=== PATIENT | female | born 1980 | race Caucasian/White ===

== ENCOUNTER 2024-07-10 08:50 | Emergency (ER) | payer SELFPAY ==
[2024-07-10] VITALS (9 sets, daily range): BP systolic 131–167; BP diastolic 95–105; BMI 31.8
[2024-07-10] MEDS: NSS 1000 IV (09:56)
[2024-07-10] MEDS: DECADRON 10 MG IV (09:57)
[2024-07-10] MEDS: TYLENOL 1000 MG PO (09:58)
[2024-07-10 10:08] LABS: % Basophils 0.5 % (0-2); % Eosinophils 0.4 % (0-6); % Immature Granulocytes 0.2 % (0-0.5); % Lymphocytes 13.5 % (20.5-51.1); % Monocytes 10.6 % (1.7-9.3); % Neutrophils 74.8 % (42.2-75.2); Absolute Basophils 0.1 10^3/uL (0-0.2); Absolute Lymphocytes 1.5 10^3/uL (1.2-3.4); Absolute Monocytes 1.2 10^3/uL (0.1-0.6); Absolute Neutrophils 8.2 10^3/uL (1.4-6.5); Hemoglobin 15.5 g/dL (12.0-16.0); Mean Corp Hgb Conc. 34.4 g/dL (33.0-37.0); Mean Corpuscular Hgb 30.7 pg (27.0-31.0); Mean Corpuscular Volume 89.1 fL (81.0-99.0); Mean Platelet Volume 9.8 fL (7.4-10.4); Nucleated Red Blood Cells % 0 %; Platelet Count 226 10^3/uL (130-400); Red Blood Cell Count 5.05 10^6/uL (4.20-5.40); Red Cell Dist. Width 12.7 % (11.5-14.5)
[2024-07-10 10:18] LABS: ALT (SGPT) 13 U/L (0-35); AST (SGOT) 19 U/L (14-36); Albumin 4.7 g/dl (3.5-5.0); Alkaline Phosphatase 87 U/L (38-126); Blood Urea Nitrogen 8 mg/dl (7-17); Calcium 9.2 mg/dl (8.4-10.2); Carbon Dioxide 23 mmol/L (22-30); Chloride 104 mmol/L (98-107); Estimated Creatinine Clearance 108 ml/min; Glucose 110 mg/dl (70-99); Sodium 135 mmol/L (135-145); Total Bilirubin 0.5 mg/dl (0.2-1.3); Total Protein 7.3 g/dl (6.3-8.2); eGFR > 60.00
[2024-07-10 10:51] LABS: TSH 2.43 uIU/ml (0.47-4.68)
--- NOTE | 2024-07-10 12:25 | ED.GENMED ---
History of Present Illness
General
Chief Complaint: Head Injury
Source: patient
Exam Limitations: none
Time Seen by Provider: 07/10/24 09:22
History of Present Illness
History of Present Illness:
44-year-old female who presents for evaluation after she had passed out last night. Patient states she woke up hot and sweaty and loss of fell mother heard her hit the ground. She must of hit her head as she has bruising around her right eye she
states. Mom states that she did seem very hot felt like she had a fever. Patient states that she feels better now but has been coughing. She is a smoker.
Past History
Past History
ED Past Medical History: None
Social History
Tobacco: Smoker
Phy Exam
Physical Exam
Physical Exam:
CONSTITUTIONAL Patient alert and oriented to person, place and time. Well-appearing. Vital signs reviewed.
HEAD atraumatic, normocephalic.
EYES eyelids normal to inspection, Extraocular muscles intact, Conjunctiva normal, Sclera normal.
NECK normal range of motion, Trachea midline, no jugular venous distention.
RESPIRATORY CHEST No respiratory distress noted, Chest expansion equal, wheezing noted bilaterally
CARDIOVASCULAR irregularly irregular and tachycardic, Heart sounds normal.
ABDOMEN abdomen nontender, Bowel sounds normal. No distention.
BACK normal inspection, no obvious deformities
UPPER EXTREMITY range of motion normal, Motor strength normal, no cyanosis, no edema.
LOWER EXTREMITY range of motion normal, Motor strength normal, no cyanosis, no edema.
NEURO Speech normal, No focal motor deficits, Barb coma scale 15, Memory normal, Cranial Nerves intact to screening exam.
SKIN skin warm, dry, and normal in color.
Scores
[id number] Score for Afib Stroke Risk
Age in Years (65=0, 65-74=1, >/=75=2): <65
Sex (Female=+1): Female
Congestive Heart Failure History (Yes=+1): No
Hypertension History (Yes=+1): No
Stroke/TIA/Thromboembolism History (Yes=+2): No
Vascular Disease History (Yes=+1): No
Diabetes Mellitus (Yes=+1): No
Score: 1
Anticoagulation Recommendations: Consider anticoagulation (as validated in nonvalvular fib)
Course
Orders/Labs/Results
Orders:
Orders
07/10/24
Electrocardiogram (*1) Stat
Comment: DONE EMR
Electrocardiogram (*1) Stat
Comment: DONE EMR
07/10/24 09:11
Electrocardiogram (*1) Urgent
Reason for Study: Chest Pain
EKG- Treatment ONCE
07/10/24 09:49
0.9% Sodium Chloride 1000 ml [Nss] 1,000 ml IV BOLUS
Acetaminophen [Tylenol] 1,000 mg PO NOW STA
Dexamethasone Sod Phosphate [Decadron] 10 mg IV NOW STA
07/10/24 09:50
CT Head W/o Iv Contrast Urgent
Comment:
Reason For Exam: fall, syncope
Complete Blood Count/With Diff Urgent
Comprehensive Metabolic Panel Urgent
Magnesium Urgent
TSH Urgent
CR Chest - 2 Views Urgent
Comment:
Reason For Exam: cough, sob
07/10/24 10:54
Electrocardiogram (*1) Urgent
Reason for Study: Shortness of Breath
Electrocardiogram (*1) Urgent
EKG- Treatment ONCE
EKG- Treatment ONCE
07/10/24 11:22
Diltiazem 125 mg/125 ml Nss [Cardizem] 125 mg in 125 ml IV NOW
Initial dose in mg/hr, then titrate:: 10
Titrate to keep:: Heart rate 80-100 bpm
Titrate by mg/hr:: 5 mg/hr
Frequency of titrations (minutes):: 15
Maximum dose in mg/hr:: 15
Diltiazem HCl [Cardizem] 10 mg IV NOW STA
07/10/24 11:23
Ipratropium/Albuterol Sulfate [Duoneb] 3 ml INH R NOW STA
Abnormal Lab Results
07/10/24
09:50
WBC 11.0 H 10^3/uL
(4.8-10.8)
Absolute Neuts (auto) 8.2 H 10^3/uL
(1.4-6.5)
Absolute Monos (auto) 1.2 H 10^3/uL
(0.1-0.6)
Lymphocytes % 13.5 L %
(20.5-51.1)
Monocytes % 10.6 H %
(1.7-9.3)
Glucose 110 H mg/dl
(70-99)
07/10/24 09:50
07/10/24 09:50
Vital Signs
Initial and Last Documented VS:
Initial Vital Signs
Temp Pulse Resp BP Pulse Ox
98.4 F 54 16 167/96 97
07/10/24 09:02 07/10/24 09:02 07/10/24 09:02 07/10/24 09:02 07/10/24 09:02
Last Documented Vital Signs
Temp Pulse Resp BP Pulse Ox
99.9 F 123 26 133/95 97
07/10/24 09:45 07/10/24 12:30 07/10/24 12:30 07/10/24 12:00 07/10/24 12:30
MDM/Problems Addressed
Differential Diagnosis Includes:
Electrolyte imbalance, pulm hypertension, COPD, asthma, congestive heart failure, pulmonary embolism
MDM/Problems Addressed:
Acute atrial flutter, acute reactive airway disease, bronchitis, upper respiratory infection
*Radiology
Radiology exam reviewed: radiology read reviewed
*Pulse Oximetry
Patient hypoxic: no
*EKG
Interpreted by ED Provider?: Yes
Interpretation: abnormal
Rate: tachycardiac
Rhythm: atrial flutter
Ruston: normal axis
Ischemia: non-specific ST changes
*Credit Historian Interpretation
Rate: tachycardiac
Interpretation: abnormal
Rhythm: atrial flutter
*Critical Care Note
Total Time (30-74mins, 75-104mins- exclusive of procedures): 30 minutes
Data Reviewed
Source: patient and family
Prescriptions/Medications Considered But Not Given:
Considered antibiotics but no focal infiltrates.
Patient Management
Discussion with other providers: Senior Ssis Developer (Case discussed with Dr. Greenfield)
Escalation/DeEscalation of care consider admission/obs:
Case discussed with cardiology. Arrives in a flutter. Now after treatment is back in normal sinus rhythm. Case discussed cardiology since she is only a [id number] 1 due to being female. Advises diltiazem. An outpatient follow-up will cover
with steroids and bronchodilators. In addition spent 20 to 25 minutes discussing importance of smoking cessation. Patient does agree
ED Attending Note
-
Portions of this chart may have been created with voice recognition software.� Occasional wrong word or��sound alike� substitutions may have occurred due to the inherent limitations of voice recognition software.
Discharge Plan
Departure
Patient Disposition: Home (Routine Discharge)
Date of Disposition: 07/10/24
Time of Disposition: 13:36
Patient with high blood pressure during this ER visit?: Yes
Discharge Problem:
RAD (reactive airway disease), Atrial flutter, Acute bronchitis
Instructions: Atrial flutter, Acute Bronchitis, Adult (DC), Quitting smoking for adults, Wheezing in adults
Prescriptions:
New
albuterol sulfate 90 mcg/actuation HFA aerosol inhaler
2 puff inhalation Q4H Qty: 8.5 0RF
prednisone 10 mg Tablet
See Rx Instructions .ROUTE .COMPLEX Qty: 30 0RF
Rx Instructions:
Take By Mouth:
40 mg daily x3 days, 30 mg daily x3 days,
20 mg daily x3 days, 10 mg daily x3 days.
Referrals:
NONE,* [Family Provider] -
Activity Restrictions/Additional Instructions:
Please stop smoking.
Please see cardiology in the next 3 to 5 days for follow-up and reevaluation.
Return immediately for difficulty breathing, chest pain, shortness of breath, worsening symptoms or any other concerns.
Interventions
Interventions:
*General Assessment Last Done: 07/10/24 09:32
*ED- Fall Risk Assessment Last Done: 07/10/24 09:32
*ED COVID-19 Vaccine History Last Done: 07/10/24 09:32
ED- Cardiac Assessment Last Done: 07/10/24 09:32
ED- Neurological Assessment Last Done: 07/10/24 09:32
ED- Pulmonary Assessment Last Done: 07/10/24 09:32
ED-Skin Assessment Last Done: 07/10/24 09:32
Discharge Date and Time
Print Language: TAMAZIGHT
== END 2024-07-10 14:06 | disposition home or self-care (01) ==
LOC: EMR 08:50
PROVIDERS: EMERGENCY PHYSICIAN Emergency Medicine
DX: I48.92 Unspecified atrial flutter (principal); J45.909 Unspecified asthma, uncomplicated; J20.9 Acute bronchitis, unspecified; R55 Syncope and collapse; F17.200 Nicotine dependence, unspecified, uncomplicated
CPT/HCPCS: 96374; 96361; 99291; 70450; 71046; 80053; 83735; 84443; 85025; 93005

== ENCOUNTER 2024-08-02 07:33 | Day surgery (SDC) | payer OTHER, SELFPAY | END 2024-08-02 11:45 | disposition home or self-care (01) | LOC: CATH 07:33 | PROVIDERS: ATTENDING PHYSICIAN Internal Medicine | DX: I48.3 Typical atrial flutter (principal); I08.1 Rheumatic disorders of both mitral and tricuspid valves; I08.8 Other rheumatic multiple valve diseases; I51.3 Intracardiac thrombosis, not elsewhere classified; F17.210 Nicotine dependence, cigarettes, uncomplicated; Z79.01 Long term (current) use of anticoagulants; Q21.10 Atrial septal defect, unspecified; I48.91 Unspecified atrial fibrillation | CPT/HCPCS: 93312; 93320; 93325 ==

== ENCOUNTER 2024-08-09 06:28 | Day surgery (SDC) | payer OTHER, SELFPAY ==
[2024-08-09] VITALS (8 sets, daily range): BP systolic 114–132; BP diastolic 87–94; BMI 29.0
[2024-08-09] MEDS: NSS 237 ML IV (07:13)
--- NOTE | 2024-08-09 08:32 | ITS.CL.CATH ---
User Support Specialist - Catheterization
Cardiac Catheterization
Procedure Report:
CARDIAC CATHETERIZATION REPORT
Date of Procedure: 08/09/2024
Referring: Tom Greenfield M.D., Ph.D.
Indication: Large ASD with right sided chamber dilation, evaluation prior to ASD repair.
PROCEDURE:
1. Congenital right heart catheterization.
2. Coronary angiography.
3. Left heart catheterization.
A total of 10 minutes of procedural/moderate sedation was utilized. An independent medical secretary was present to assist with and help manage the patient's level of consciousness and physiologic status.
ACCESS:
1. 6 Micronesian right radial artery using a modified Seldinger technique under ultrasound guidance.
2. 5 Micronesian right antecubital vein using a previously placed IV.
CATHETERS:
1. 5 Micronesian balloon wedge.
2. 5 Micronesian JL 3.5.
3. 5 Micronesian JR4.
4. 5 Micronesian AR mod.
HEMODYNAMIC DATA
Weight (kg): 79.1
AO (s/d/x, mmHg): 127/85/103
LV (s/x, mmHg): 127/15
PCWP (a/v/x, mmHg): 18/19/15
PA (s/d/x, mmHg): 39/16/24
RV (s/x, mmHg): 39/10
RA (a/v/x, mmHg): 15//10
SVC SvO2 (%): 74.6
IVC SvO2 (%): 82.1
RA SvO2 (%): 89.9
RV SvO2 (%): 91.9
PA SvO2 (%): 89.0
MV SvO2 (%): 76.5
SaO2 (%): 98.7
Hbg (g/dL): 14.3
RUCHI
CO (L/min): 5.6
CI (L/min/m2): 2.9
Thermodilution
CO (L/min): Not performed.
CI (L/min/m2): Not performed.
Qp:Qs: 2.29
TPG (mmHg): 9
PVR (Castaneda Units): 1.61
SVR (dynes*seconds*cm^-5): 1329
AVO2 Diff (Volume %): 4.31
AV gradient (x, mmHg): None.
AV area (cm2): Normal.
MV gradient (x, mmHg): Not obtained.
MV area (cm2): Not obtained.
LEFT VENTRICULOGRAPHY: Not performed.
AORTOGRAPHY: Not performed.
CORONARY ANGIOGRAPHY
Dominance: Left.
Left Main: Extremely short, essentially cloacal, bifurcating vessel with no coronary artery disease.
LAD: Normal size vessel giving rise to 1 notable diagonal. There is no coronary artery disease. 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
Ramus: Congenitally absent.
Circumflex: Large size, dominant vessel giving rise to 2 obtuse marginals before terminating as a left posterior descending artery. There is no coronary artery disease.
RCA: Small size, nondominant vessel with a large right ventricular branch. There is no coronary artery disease.
INTERVENTIONS
None.
Closure Device: Vascular band for the right radial artery, manual pressure for the right antecubital vein.
Radiation dose (mGy): 273.41
DAP (cm2.Gy): 23.2537
Fluoroscopy time (minutes): 4.6
CONCLUSIONS:
1. Left dominant circulation with no coronary artery disease. 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
2. Mildly elevated filling pressures (LVEDP = 15 mmHg, PCWP = 15 mmHg at 79.1 kg).
3. Large fluk-hc-nqhtf shunt at the atrial level, consistent with previously diagnosed atrial septal defect. QP: QS = 2.29.
RECOMMENDATIONS:
1. Expectant management after cardiac catheterization via right radial/antecubital approach.
2. Limited weight bearing on the right wrist for one week.
3. Consultation with CT surgery regarding optimal strategy for ASD closure, surgical versus percutaneous. Prior ANTHONY raises concerns about the amount of rim available for percutaneous closure.
4. Resume anticoagulation for previously diagnosed left atrial appendage thrombus.
Copy to: Tom Greenfield M.D., Ph.D.
Severo Manzo DO, FACC, FACP
[2024-08-09] MEDS: NSS 1000 IV (09:42)
== END 2024-08-09 11:15 | disposition home or self-care (01) ==
LOC: CATH 06:28
PROVIDERS: ATTENDING PHYSICIAN Internal Medicine Cardiovascular Disease; OTHER PHYSICIAN Internal Medicine
DX: Q21.10 Atrial septal defect, unspecified (principal); Q24.5 Malformation of coronary vessels; I48.3 Typical atrial flutter; I10 Essential (primary) hypertension; Z79.01 Long term (current) use of anticoagulants; F17.210 Nicotine dependence, cigarettes, uncomplicated
CPT/HCPCS: 93460; 93563; 93597; C1894; Q9967

== ENCOUNTER 2024-09-18 06:38 | Day surgery (SDC) | payer OTHER, SELFPAY | END 2024-09-18 08:05 | disposition home or self-care (01) | LOC: CATH 06:38 | PROVIDERS: ATTENDING PHYSICIAN Internal Medicine | DX: I48.3 Typical atrial flutter (principal); Q21.11 Secundum atrial septal defect; I51.3 Intracardiac thrombosis, not elsewhere classified; I08.1 Rheumatic disorders of both mitral and tricuspid valves; I08.8 Other rheumatic multiple valve diseases; I10 Essential (primary) hypertension; Z79.01 Long term (current) use of anticoagulants | CPT/HCPCS: 93312; 93320; 93325 ==

== ENCOUNTER 2024-10-30 06:38 | Day surgery (SDC) | payer OTHER, SELFPAY ==
[2024-10-30 07:38] VITALS: BMI 30.2
== END 2024-10-30 09:15 | disposition home or self-care (01) ==
LOC: CATH 06:38
PROVIDERS: ATTENDING PHYSICIAN Internal Medicine Cardiovascular Disease; OTHER PHYSICIAN Internal Medicine
DX: I08.1 Rheumatic disorders of both mitral and tricuspid valves (principal); Q21.11 Secundum atrial septal defect; I51.3 Intracardiac thrombosis, not elsewhere classified; I48.0 Paroxysmal atrial fibrillation; I48.3 Typical atrial flutter; I10 Essential (primary) hypertension; F17.200 Nicotine dependence, unspecified, uncomplicated
CPT/HCPCS: 93312; 93320; 93325

== ENCOUNTER 2024-11-21 12:06 | Inpatient (IN) | payer OTHER, SELFPAY ==
[2024-11-21 12:25] VITALS: BP 143/96
[2024-11-21 12:27] VITALS: BP 134/94
[2024-11-21 12:47] VITALS: BMI 30.3
--- NOTE | 2024-11-21 12:50 | HPS.HSE ---
Family Physician
-
Family Physician: NOT KNOW UNKNOWN - PT DOES
Chief Complaint
-
Early admission for IV heparin conversion due to left atrial appendage thrombus
History of Present Illness
44-year-old female recently evaluated by Dr. Cohn in the CT office on 11/06/2024. She was diagnosed with atrial flutter in July and started on Dabigatran. Patient underwent attempted ATNHONY guided cardioversion on 09/18/24 and was found to have a large
secundum ASD with significant shunt and also thrombus in the left atrial appendage. Patient has been anticoagulated and repeat echocardiogram on 10/30/2024 reported preserved EF at 55% with no regional wall motion abnormality. Left atrial appendage
thrombus was still present but smaller. Therefore patient is admitted for Pradaxa to IV heparin conversion in preparation for left atrial appendage thrombectomy, secundum ASD closure, maze, and left atrial appendage clip on 11/24/2024 with
Jonny Cohn. Last dose of dabigatran was today (11/21/2024). Admission ECG with atrial flutter at 72 bpm and electronically interpreted as acute STEMI. ECG reviewed with cardiology and found to be low incidence as patient had normal coronaries on
cath (08/09/2024) and states she typically experiences mild chest discomfort when in a flutter. Troponin added to admission labs.
Medical History
Past Medical History
Past Medical History: Reports Arrhythmia (Atrial fibrillation), HTN and Other (scoliosis)
Past Surgical History: Reports None
Social History
Tobacco: Former Smoker (quit 1 month ago)
Alcohol: Occasional
Drug: None
Personal: Single
Living: With Family
Employment: Employed
Family History
Family History: Not pertinent
Allergies / Home Medications
Allergies reflects when Allergies were last updated in [facility].
Home Medications with original date entered in [facility]
Allergy/Medication List:
Allergies
Allergy/AdvReac Type Severity Reaction Status Date / Time
pollen extracts Allergy Unknown Verified 07/10/24 09:07
Home Medications
�Medication �Instructions �Recorded
acetaminophen 500 mg tablet 500 mg PO QID PRN pain 08/02/24
diltiazem HCl 360 mg 360 mg PO DAILY 08/02/24
tablet,extended release 24 hr
(Matzim [place])
dabigatran etexilate 150 mg capsule 150 mg PO BID 10/30/24
Review of Systems
-
History Source: Patient
A 12 point ROS was completed and negative except as noted: Yes
Physical Exam
Vital Signs
Vital Signs
Temp Pulse Resp BP Pulse Ox
98.3 F 69 18 134/94 98
11/21/24 12:48 11/21/24 12:45 11/21/24 12:48 11/21/24 12:27 11/21/24 12:48
Physical Exam
General: Well Developed, Well Nourished and No Apparent Distress
HEENT: NormoCephalic, Anicteric, Moist mucous membranes and PERRLA
Respiratory: Clear
Cardiac: Irregular Rhythm
Breast: Deferred by me
GI: Soft, Non Tender, Non Distended and Normal Bowel Sounds
Rectal: Deferred by Provider
Genito-urinary: Deferred by me
Musculoskeletal: No Clubbing, No Cyanosis, No Edema and Normal Gait & Station
Skin: Warm and Dry
Neuro: AO x 3, No Motor Deficits and Nonfocal/grossly intact
Hematologic/Lymphatic: No Lymphadenopathy
Psych: Calm
Data Reviewed
-
Diagnostic Radiology: Report Reviewed by me and Discussed with Physician
Medical Tests (Nuc Med, Echo, EKG etc): Report Reviewed by me and Discussed with Physician
Lab Data: Labs Reviewed by me and Discussed with Physician
Impression/Plan
-
IMPRESSION: 44-year-old female with secundum ASD, left atrial appendage thrombus, and atrial flutter is admitted for Pradaxa to IV heparin conversion and preparation for left atrial appendage thrombectomy, maze, ASD closure, and left atrial
appendage clip on 11/24. ECG identifiably atrial flutter with controlled ventricular response.
PLAN:
- pre-op diagnostics ordered
- begin IV Heparin (last Pradaxa o 11/21/24)
- Admission ECG reviewed with cardiology>low likelihood of STEMI (clean cors on cath in July)>troponin sent
- 2PRBC, 2 plts on hold for OR
- preop UA-HCG, T&S ordered
- will need anesthesia pre-op evaluation
- OR consent scanned in chart
- had recent dental visit
[2024-11-21 13:04] LABS: Hematocrit 40.0 % (37.0-47.0); Hemoglobin 13.5 g/dL (12.0-16.0); Mean Corp Hgb Conc. 33.8 g/dL (33.0-37.0); Mean Corpuscular Volume 87.1 fL (81.0-99.0); Nucleated Red Blood Cells % 0 %; Platelet Count 235 10^3/uL (130-400); Red Cell Dist. Width 12.5 % (11.5-14.5)
[2024-11-21 13:14] LABS: INR 1.21; PT 15.6 Sec (11.4-14.6)
[2024-11-21 13:15] LABS: APTT 35.1 Sec (23.4-35.0)
--- NOTE | 2024-11-21 13:26 | ECGCV ---
<Manasa Leiva NP> notified of ECG critical value identified by electronic interpretation on ECG completed on <>, at <1235>.
--- NOTE | 2024-11-21 13:30 | PTCARENOTE ---
pt admitted to CVICU, VS completed, weighed. admission interview completed, home meds reviewed. PIV placed, labs drawn. EKG completed, TEAR DOWN MATCHER aware of result. pt oriented, no c/o CP. aflutter on the monitor, HR 60-90s. SBP 130-140s, TEAR DOWN MATCHER aware of
difference in b/l arm diastolics. pt on RA, 97% POX. lungs clear. pt abdomen s/n, denies n/v. +BS. voids. ambulates independently. patterson angiomas on chest and b/l arms, pt states is her baseline. pt sent to CT scan and Vasc US. family updated.
[2024-11-21 13:45] LABS: ALT (SGPT) 17 U/L (0-35); AST (SGOT) 20 U/L (14-36); Albumin 4.8 g/dl (3.5-5.0); Alkaline Phosphatase 81 U/L (38-126); Blood Urea Nitrogen 8 mg/dl (7-17); Calcium 9.0 mg/dl (8.4-10.2); Carbon Dioxide 20 mmol/L (22-30); Chloride 106 mmol/L (98-107); Estimated Creatinine Clearance 123 ml/min; Glucose 98 mg/dl (70-99); Magnesium 1.7 mg/dl (1.6-2.3); Potassium 3.8 mmol/L (3.5-5.1); Sodium 135 mmol/L (135-145); Total Protein 7.1 g/dl (6.3-8.2); eGFR > 60.00
[2024-11-21] MEDS: HEPARIN 25000 UNITS/250 ML IV (14:49)
[2024-11-21 14:53] VITALS: BMI 30.3
--- NOTE | 2024-11-21 15:14 | CM ---
Reviewed chart. Met with Miss Ramsey to review discharge plans. She states prior to admission she resides with her mother in a one story with two steps to enter. She states prior to admission she was independent with ambulation and adls. She
states she does not have any DME in the home. She states she has a prescription plan and uses [facility].She states her mother will be home to assist in her care if needed. She states she is scheduled for surgery on Wednesday11/24/24. Medical
work-up in progress. The discharge plan is to return home with her mother and a home visit by the Transitional Care Nurse when medically stable.
[2024-11-21 15:39] VITALS: BP 138/93
[2024-11-21 15:47] LABS: Troponin I < 0.012 ng/ml
--- NOTE | 2024-11-21 16:00 | PTCARENOTE ---
pt VSS, no changes in assessment. heparin gtt running as ordered.
[2024-11-21 16:21] LABS: Urine Character Clear (Clear)
[2024-11-21 16:30] LABS: Urine Red Blood Cell 0-2 /HPF (0-2); Urine White Cell 0-2 /HPF (0-5)
[2024-11-21] MEDS: CARDIZEM CD 360 MG PO (17:15)
[2024-11-21 20:02] VITALS: BP 139/93
--- NOTE | 2024-11-21 20:10 | PTCARENOTE ---
Assumed care of pt from dayshift RN. Walking rounds completed. Pt AAOx3. A-flutter on the tele monitor. HR 70-80s. BP stable. Palpable pulses throughout. No edema. Pt is 97% on RA. B/L breath sound present and equal. Abdomen soft/nontender. +BSx4.
Voiding w/o issue. Juarez angiomas on chest and b/l arms, pt states is her baseline. PIV x1 intact. Independent in room. Heparin infusing as ordered. Denies pain at this time. See worklist for full nursing assessment and interventions. Call [facility]
within reach.
[2024-11-21 21:37] LABS: APTT 53.6 Sec (23.4-35.0)
[2024-11-21 23:03] VITALS: BP 119/91
--- NOTE | 2024-11-21 23:30 | PTCARENOTE ---
No change in assessment. A-flutter on the tele monitor. HR 60-80s. BP stable. Voiding as needed. Heparin infusing. Repositioned in bed for comfort. Call [facility] within reach.
[2024-11-22] VITALS (8 sets, daily range): BP systolic 123–135; BP diastolic 80–101; BMI 29.5
--- NOTE | 2024-11-22 04:14 | W.PN.CT ---
Today's Communication / Plan
-
Plan:
-Transitioning off Dabigatran to heparin gtt
-Monitor PTT
-Dabigatran washout, last dose 11/21/24
-Ongoing preop workup/optimization
-Will replete Mg++ and K+
-For ASD closure, MAZE, WINSOME clip via Sternotomy on 11/24/24, by Dr. Cohn
Assessment / Plan
-
Assessment:
-Atrial flutter
-Large secundum ASD with L -> R shunt
-Mild MR
-Mild-moderate TR
-LVEF 55-60%
-HTN
-Class 1 obesity (BMI 30.3)
-Scoliosis
-Former tobacco use
-S/P L heart Cath, no CAD, 08/09/24
Discussed patient care with: Nursing, Pharmacy and Care Team
Subjective
-
Date of Service: November 22, 2024
Pt offers no complaints, 'just a bit anxious'
Objective Data
-
Lab Results
11/21/24 12:55
11/21/24 12:55
PT 15.6 Sec (11.4-14.6) H 11/21/24 12:55
INR 1.21 11/21/24 12:55
APTT 53.6 Sec (23.4-35.0) H 11/21/24 21:18
Vital Signs
Vital Signs
Temp Pulse Resp BP Pulse Ox
98.2 F 73 18 127/92 96
11/22/24 03:53 11/22/24 04:00 11/22/24 03:53 11/22/24 03:53 11/22/24 03:53
CT Intake/Output/Weight
11/21/24 11/21/24 11/22/24
06:59 18:59 06:59
Intake Total 28.5 / 38.0 9.5 / 38.0
Output Total 1100 / 1100
Balance -1071.5 / -1062.0 9.5 / -1062.0
SaO2: 96 (RA)
Physical Exam
-
General: Awake, Oriented and AOx3
Cardiovascular: Irregular rate & rhythm and No Murmurs
Respiratory: Clear
Extremities: No Edema
Data Reviewed
-
Lab Results: Results Reviewed
Medications: Active Meds Reviewed
Chest X-Ray: Report Reviewed and Image Reviewed
ECG: Report Reviewed and Image Reviewed
[2024-11-22] MEDS: KCL 20 MEQ PO (04:25)
[2024-11-22] MEDS: MAGNESIUM SULFATE 50 IV (04:25)
[2024-11-22 04:36] LABS: APTT 64.7 Sec (23.4-35.0)
--- NOTE | 2024-11-22 04:49 | PTCARENOTE ---
No change in assessment. Pt is a-flutter w/ occasional PVCs on the tele monitor. HR 70s. BP stable. 96% on RA. Labs drawn and sent. EKG obtained. Voiding w/o issue. Potassium and mag administered - see MAR. Heparin infusing as ordered. Call [facility]
within reach.
--- NOTE | 2024-11-22 08:00 | PTCARENOTE ---
pt received from previous RN, oriented, OOB in chair. Aflutter on the monitor, HR 70s. SBP 130s, OUTDOOR GUIDE aware of diastolic pressures. palpable pulses, no edema. pt on RA, 98% POX. lungs clear. pt abdomen s/n, denies n/v. diet tolerated well. voids.
ambulates independently. PIV. heparin gtt running as ordered. see worklist for VS, I&O, and assessment.
[2024-11-22 08:40] LABS: Glycohemoglobin (HgbA1c) 5.3 % (4.0-5.6)
--- NOTE | 2024-11-22 09:36 | CON.CAR ---
Addendum entered and electronically signed by Harshad Garcia MD 11/22/24 18:37:
Patient seen and examined in collaboration with ANSWERING SERVICE AGENT; agree with below.
- 44-year-old female with typical atrial flutter (on Pradaxa) being electively admitted to undergo elective WINSOME thrombectomy, secundum ASD closure, maze, and WINSOME clip on 11/24/2024.
- Feels well from a cardiac standpoint currently; no complaints.
- Continue heparin drip.
- Continue gambling monitor; will follow.
Original Note:
Consultation
Consultation Request
Date/Time Consultation Requested: 11/22/24830
Date/Time Consultation Performed: 11/22/24934
Requesting Provider: Manasa Leiva
Performing Provider: Ana M MCWILLIAMS for Dr. Garcia
Reason for Consultation: Atrial flutter, ASD, WINSOME thrombus
Medical History
-
Chief Complaint: Atrial flutter, ASD, WINSOME thrombus
History of Present Illness:
44 y/o female (patient of Dr. Greenfield) with typical atrial flutter on dabigatran (and PAF per OP chart- Dr. Calderon consult), hypertension, hx tobacco use, ASD, and WINSOME thrombus. Last dose dabigatran 11/21/24 and she is here for heparin bridging with
plan for left atrial appendage thrombectomy, secundum ASD closure, maze, and left atrial appendage clip on 11/24/[address] Jonny Cohn. She is in no distress at the time of my assessment.
Past Medical History
Past Medical History: Arrhythmias, HTN and Other (as above)
Social History
Tobacco: Former Smoker
Family History
Family History: Reviewed & Not Pertinent
Allergies / Home Medications
Allergy/AdvReac Type Severity Reaction Status Date / Time
pollen extracts Allergy Unknown Verified 07/10/24 09:07
�Medication �Instructions �Recorded �Confirmed �Type
acetaminophen 500 mg tablet 500 mg PO QID PRN pain 08/02/24 11/21/24 History
diltiazem HCl 360 mg 360 mg PO DAILY Blood Pressure 08/02/24 11/21/24 History
tablet,extended release 24 hr
(Matziashlee [place])
dabigatran etexilate 150 mg capsule 150 mg PO BID Diabetes 10/30/24 11/21/24 History
Review of Systems
-
History Source: Patient
All other systems: Negative unless noted
Cardiac: Chest Pain (gets chest discomfort/congestion feeling when HR fast)
Physical Exam
Vital Signs
Temp Pulse Resp BP Pulse Ox
97.8 F 75 18 132/98 98
11/22/24 08:00 11/22/24 09:15 11/22/24 08:00 11/22/24 08:12 11/22/24 08:00
Lab Results
11/21/24 12:55
11/21/24 12:55
Troponin I < 0.012 ng/ml 11/21/24 15:03
Physical Exam
General: Well Developed, Well Nourished and No Apparent Distress
HEENT: Normocephalic and Anicteric
Respiratory: Clear and Non Labored Respirations
Cardiac: Irregular Rhythm
Skin: Warm and Dry
Neuro: AO x 3
Psych: Calm
Impression / Plan
-
Large secundum atrial septal defect, WINSOME thrombus, Atrial flutter:
-plan is for left atrial appendage thrombectomy, maze, ASD closure, and left atrial appendage clip on 11/24/24
-on heparin bridge for surgery (on pradaxa as OP, which was switched to Eliquis due to persistent WINSOME thrombus)
Atrial flutter, typical, PAF:
-currently in atrial flutter. When HR's get fast in AF, she feels CP/chest congestion feeling. Currently feeling fine and HR in 70's.
-continue diltiazem and monitor telemetry
-continue IV heparin as above- this requires intensive monitoring. [id number] score is 4 for female, hypertension, and thrombus.
-surgical plan as above
HTN:
-continue diltiazem and monitor
-if diastolic BP's remain elevated, may need to adjust meds
Hx smoking:
-I congratulated her on quitting. She should remain smoke free moving forward.
Data:
ANTHONY 10/30/24: Normal left ventricular size, wall thickness and systolic function. Estimated LVEF 55-60%. Enlarged right ventricular size. Systolic function is within normal limits. Right atrial size is moderately dilated. Mild/moderate tricuspid
regurgitation. Large secundum atrial septal defect is seen. Compared to ANTHONY 09/18/24: left atrial appendage thrombus is still present, but smaller (1.3 cm x 0.8 cm, compared to 0.6 cm x 0.3cm).
Cardiac Cath 08/09/24: Left dominant circulation with no coronary artery disease. 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 Mildly elevated filling pressures (LVEDP = 15 mmHg, PCWP = 15 mmHg at 79.1 kg). Large ingd-pi-dgtpe shunt at
the atrial level, consistent with previously diagnosed atrial septal defect. QP: QS = 2.29.
Data Reviewed
-
EKG: Tracing Personally Visualized and interpreted (A-flutter 73 BPM)
CT Scan: Report Reviewed by me (chest 11/21/24: No acute pulmonary process. 2. Moderate cardiomegaly. No calcific atherosclerotic changes of aorta or coronary arteries identified.)
Medical Tests (Nuc Med, Echo etc): Report Reviewed by me (ANTHONY as noted)
Labs: Labs Reviewed by me
[2024-11-22 10:55] LABS: APTT 68.6 Sec (23.4-35.0)
--- NOTE | 2024-11-22 12:00 | PTCARENOTE ---
pt VSS, no changes in assessment. pt ambulating in hallway independently, OOB in chair for lunch. heparin gtt running as ordered.
[2024-11-22] MEDS: HEPARIN 25000 UNITS/250 ML IV (12:09)
--- NOTE | 2024-11-22 14:46 | CM ---
Reviewed chart. Met with Ms. Ramsey to review discharge plans. She states she is feeling well. Prior to admission she resides with her mother in a one story with two steps to enter. Prior to admission she was independent with ambulation and adls.
She does not have any DME in the home. She states she has a prescription plan and uses [facility]. Her mother will be home to assist in her care if needed. She is scheduled for surgery on Wednesday11/24/24. Medical work-up in progress. The
discharge plan is to return home with her mother and a home visit by the Transitional Care Nurse when medically stable.
We reviewed pre-op and post-op routines. We briefly reviewed the shower instructions. We also reviewed restrictions including sternal precautions and driving restrictions. We discussed a home visit by the Transitional Care Nurse. She is agreeable
to a home visit. The plan is WINSOME clot extraction, MAZE and ASD closure on Sunday, November 24, 2024.
[2024-11-22] MEDS: TYLENOL 650 MG PO (15:16)
--- NOTE | 2024-11-22 16:00 | PTCARENOTE ---
pt VSS, no changes in assessment. pt c/o chronic lower back pain, PRN Tylenol given as ordered. pt ambulating independently in room and hallway.
[2024-11-22 18:52] LABS: APTT 105.6 Sec (23.4-35.0)
--- NOTE | 2024-11-22 20:26 | PTCARENOTE ---
Patient received form RN @ 1900. Patient lying in bed w/ call [facility] in reach. AOx3. Ambulates independently. A. Flutter on monitor. BP 124/91 HR 97. Heart sounds audible. Radial and pedal pulses present. No edema noted. POX 96% RA. No cough
or SOB noted. Bowel sounds normoactive. Voiding clear yellow urine. PIV patent and intact. 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 Heparin infusing per protocol. See worklist for details.
[2024-11-22] MEDS: CARDIZEM CD 360 MG PO (22:20)
[2024-11-23] VITALS (10 sets, daily range): BP systolic 117–136; BP diastolic 78–93; BMI 29.6
--- NOTE | 2024-11-23 01:05 | PTCARENOTE ---
Patient reassessed. A. Flutter on monitor. HR 90's-100's BP 120/85 POX 97% RA.
[2024-11-23 01:22] LABS: APTT 121.4 Sec (23.4-35.0)
[2024-11-23 04:15] LABS: Hematocrit 40.3 % (37.0-47.0); Hemoglobin 13.7 g/dL (12.0-16.0); Mean Corp Hgb Conc. 34.0 g/dL (33.0-37.0); Mean Corpuscular Volume 87.0 fL (81.0-99.0); Platelet Count 233 10^3/uL (130-400); Red Cell Dist. Width 12.6 % (11.5-14.5)
[2024-11-23] MEDS: HEPARIN 25000 UNITS/250 ML IV ×2 (04:53→23:03)
--- NOTE | 2024-11-23 04:57 | PTCARENOTE ---
Patient reassessed. A. Flutter on monitor. VSS. Labs obtained.
[2024-11-23 04:58] LABS: HCG, Urine Qualitative Screen Negative
[2024-11-23 04:59] LABS: Blood Urea Nitrogen 9 mg/dl (7-17); Calcium 8.3 mg/dl (8.4-10.2); Carbon Dioxide 19 mmol/L (22-30); Chloride 110 mmol/L (98-107); Estimated Creatinine Clearance 121 ml/min; Glucose 101 mg/dl (70-99); Magnesium 2.0 mg/dl (1.6-2.3); Potassium 3.8 mmol/L (3.5-5.1); Sodium 137 mmol/L (135-145); eGFR > 60.00
--- NOTE | 2024-11-23 06:59 | W.PN.CT ---
Today's Communication / Plan
-
Plan:
-No issues overnight
-Transitioning off Dabigatran to heparin gtt
-PTT 121 overnight - Heparin decreased to 1400 units/hr
-Dabigatran washout, last dose 11/21/24
-Ongoing preop workup/optimization
-For ASD closure, MAZE, WINSOME clip via Sternotomy on 11/24/24, by Dr. Cohn
Assessment / Plan
-
Assessment:
-Atrial flutter- on Dabigatran preop
-Large secundum ASD with L -> R shunt
-Mild MR
-Mild-moderate TR
-LVEF 55-60%
-HTN
-Class 1 obesity (BMI 30.3)
-Scoliosis
-Former tobacco use
-S/P L heart Cath, no CAD, 08/09/24
Discussed patient care with: Nursing and Care Team
Subjective
-
Date of Service: November 23, 2024
Objective Data
-
Lab Results
11/23/24 04:01
11/23/24 04:01
PT 15.6 Sec (11.4-14.6) H 11/21/24 12:55
INR 1.21 11/21/24 12:55
APTT 121.4 Sec (23.4-35.0) H 11/23/24 00:57
Vital Signs
Vital Signs
Temp Pulse Resp BP Pulse Ox
97.6 F 67 14 122/78 96
11/23/24 04:56 11/23/24 04:45 11/23/24 04:56 11/23/24 04:05 11/23/24 04:56
CT Intake/Output/Weight
11/22/24 11/22/24 11/23/24
06:59 18:59 06:59
Intake Total 110.0 / 138.5 615.0 / 615.0
Output Total 1800 / 3350 1550 / 3350
Balance 110.0 / -961.5 -1185.0 / -2735.0 -1550 / -2735.0
SaO2: 96
Physical Exam
-
General: Awake and AOx3
Cardiovascular: Irregular rate & rhythm, No Murmurs and No Rub
Respiratory: Clear
Extremities: No Edema
Data Reviewed
-
Lab Results: Results Reviewed
Medications: Active Meds Reviewed
CT Scan: Report Reviewed
ECG: Report Reviewed and Image Reviewed
--- NOTE | 2024-11-23 07:36 | W.PN.CD ---
Today's Communication / Plan
-
Heparin gtt.
Anticipate OR tomorrow.
Impression / Plan
-
Impression/Plan: 44 y/o female with secundum ASD unsuitable for percutaneous closure, atypical atrial flutter + left atrial appendage thrombus, HTN and a history of tobacco abuse admitted for heparin bridging prior to surgical ASD closure and LAAE.
#Secundum atrial septal defect:
-Chronic. Anatomically inappropriate for percutaneous closure.
-Plan is for left atrial appendage thrombectomy, maze, ASD closure, and left atrial appendage clip on 11/24/24.
-Continue heparin bridge for surgery (on dabigatran as OP, which was switched to Eliquis due to persistent WINSOME thrombus).
#Typical atrial flutter, PAF/Left atrial appendage thrombus:
-Chronic, stable.
-Currently in atrial flutter. When HR's get fast in AF, she feels CP/chest congestion feeling. Currently feeling fine and HR in 70's.
-Rate/rhythm control with diltiazem.
-[id number] score = 4 for (female, hypertension, and thrombus x2).
-Therapeutic anticoagulation with heparin gtt.
-Surgical plan as above.
#HTN:
-Chronic, stable.
-Continue diltiazem.
#Hx smoking:
-I congratulated her on quitting. She should remain smoke free moving forward.
Subjective/Interval History:
No acute events.
Heparin titrated to have therapeutic PTTs.
DATA:
CT Chest, 11/21/3034:
IMPRESSION:
1. No acute pulmonary process.
2. Moderate cardiomegaly. No calcific atherosclerotic changes of aorta or coronary arteries identified.
Carotid Duplex, 11/21/2024:
IMPRESSION: No significant carotid bulb plaque demonstrated on either side, and no evidence of hemodynamically significant carotid stenosis as per modified Society of Radiologists in Ultrasound consensus criteria (IAC carotid criteria white paper,
2020).
ANTHONY 10/30/24:
Normal left ventricular size, wall thickness and systolic function. Estimated LVEF 55-60%.
Enlarged right ventricular size. Systolic function is within normal limits.
Right atrial size is moderately dilated.
Mild/moderate tricuspid regurgitation.
Large secundum atrial septal defect is seen.
Compared to ANTHONY 09/18/24: left atrial appendage thrombus is still present, but smaller (1.3 cm x 0.8 cm, compared to 0.6 cm x 0.3cm).
Cardiac Catheterization, 08/09/2024:
CONCLUSIONS:
1. Left dominant circulation with no coronary artery disease. 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
2. Mildly elevated filling pressures (LVEDP = 15 mmHg, PCWP = 15 mmHg at 79.1 kg).
3. Large [id number] shunt at the atrial level, consistent with previously diagnosed atrial septal defect. QP: QS = 2.29.
Physical Exam
Vital Signs/Labs
Vital Signs
Temp Pulse Resp BP Pulse Ox
36.4 C 67 14 122/78 96
11/23/24 04:56 11/23/24 04:45 11/23/24 04:56 11/23/24 04:05 11/23/24 07:01
11/21/24 11/22/24 11/23/24
11:59 11:59 11:59
Actual Weight 77.8 kg 78.1 kg
11/23/24 04:01
11/23/24 04:01
PT 15.6 Sec (11.4-14.6) H 11/21/24 12:55
INR 1.21 11/21/24 12:55
APTT 121.4 Sec (23.4-35.0) H 11/23/24 00:57
Magnesium 2.0 mg/dl (1.6-2.3) 11/23/24 04:01
LAB Results
11/21/24
15:03
Troponin I < 0.012
Physical Exam
Constitutional: No acute distress and Comfortable
EENT: Anicteric and Moist mucous membranes
Cardiovascular: Rhythm & rate is regular, Pedal edema is absent, JVD pressure is normal, S1S2 is normal and Murmur/rub/gallop absent
Respiratory: Respiratory effort normal, Lungs clear to auscul., Wheeze Absent, Crackles Absent and Rhonchi Absent
GI: Soft, Distention absent, Flat, Non tender and Normal bowel sounds
Neuro/Psych: AO x 3
Data Reviewed
-
Date of Service: November 23, 2024
Medical Decision Making: Reviewed Test Results, Independent Historian Assessment and Test Interpretation
EKG: Tracing Personally Visualized and interpreted and Report Reviewed by me
Echo: Tracing Personally Visualized and interpreted and Report Reviewed by me
X-Ray/CT/US/MRI/NUC/PET: Image Personally Visualized and interpreted and Report Reviewed by me
Medical Tests (PFT, Pathology etc): Image Personally Visualized and interpreted and Report Reviewed by me
Labs: Labs Reviewed by me
Old Records: Reviewed
--- NOTE | 2024-11-23 07:45 | PTCARENOTE ---
Assumed care of patient. Walking rounds completed with previous RN. Pt assessed while she was sitting in the chair. Pt alert and oriented x4. Denies pain, shortness of breath, and nausea. Independent in the room. Aflutter on tele with variable rate
80s-120s. BP 134/93. Heart tones audible. Bilateral radial and DP pulses palpable. No edema noted. POX 97% on RA. Lungs clear throughout. No cough noted. Abdomen soft, round, nontender. +BS. Pt voiding clear yellow urine, reports no issues. PIV x2
intact. Heparin gtt infusing. See MAR for medication administration. See worklist for complete nursing assessment. Plan of care reviewed and patient in agreement.
[2024-11-23 08:37] LABS: APTT 98.5 Sec (23.4-35.0)
--- NOTE | 2024-11-23 12:30 | CM ---
Reviewed chart. Met with Ms. Ramsey to review discharge plans. She is waiting surgery on Wednesday11/24/24. She states she is feeling well. Prior to admission she resides with her mother in a one story with two steps to enter. Prior to admission she
was independent with ambulation and adls. She does not have any DME in the home. She states she has a prescription plan and uses [facility]. Her mother will be home to assist in her care if needed. She is scheduled for surgery on Wednesday
11/24/24. Medical work-up in progress. The discharge plan is to return home with her mother and a home visit by the Transitional Care Nurse when medically stable.
--- NOTE | 2024-11-23 12:44 | PTCARENOTE ---
Pt reassessed. VSS. Aflutter with rates in the 80s. BP 117/89 POX 95% on RA. Heparin continues to infuse. PIVx2 intact. No complaints.
[2024-11-23 14:40] LABS: APTT 76.2 Sec (23.4-35.0)
--- NOTE | 2024-11-23 15:43 | PTCARENOTE ---
Pt reassessed. No acute changes. VSS. Heparin continues to infuse.
--- NOTE | 2024-11-23 20:30 | PTCARENOTE ---
Report received from NEFTALI Almanza. Walking rounds done. Pt assessed. VS done. (See flowsheet). Pt awake, alert, oriented x 4. Deneis pain. On Room air, sats 96%. BBS present. Clear throughout. Pt in A-flutter. Rate 70-100's (100's with activity). +2
palpable radial and DP pulses. BP 130's/80's to L upper arm. Heparin gtt at 1400 units/hr. Next PT due in am, 103. Belly soft, nontender. Normoactive bs x 4. NPO after MN. Pt voids ad montserrat. Clear, yellow urine. Ongoing plan of care.
--- NOTE | 2024-11-23 23:00 | PTCARENOTE ---
Pt clipped for CVOR per protocol. Pt took Hibiclens shower, shampooed hair. Helped back to bed. All bed linens, leads, and her gown changed. CHG wipe bath given. VS done. See flowsheet. Pt going to sleep for evening. TORSTEN BLANCHARD.
[2024-11-23] MEDS: CARDIZEM CD 360 MG PO (23:03)
[2024-11-24] VITALS (23 sets, daily range): BP systolic 93–126; BP diastolic 55–88; BMI 29.4
[2024-11-24 06:03] LABS: APTT 108.7 Sec (23.4-35.0)
[2024-11-24] MEDS: BACTROBAN 2% OINTMENT 1 APPLIC NASAL ×2 (06:03→20:04)
[2024-11-24] MEDS: MAGNESIUM OXIDE 400 MG PO (06:04)
[2024-11-24] MEDS: PROTONIX 40 MG PO (06:04)
[2024-11-24] MEDS: LOPRESSOR 25 MG PO (06:04)
--- NOTE | 2024-11-24 06:13 | PTCARENOTE ---
2nd CHG bath given. VS done. Pt's family at bedside. Preop meds given.
--- NOTE | 2024-11-24 06:27 | W.CVOR.SURPR ---
CVOR Surgeon Immed Pre Op
-
I have examined this patient prior to performance of the scheduled procedure.
The patient's condition is unchanged from the time of the dictated/written History and
Physical and the patient is able to undergo the scheduled procedure.
ASD closure, biatrial MAZE, WINSOME E after Clot extraction
--- NOTE | 2024-11-24 07:06 | W.PN.CD ---
Today's Communication / Plan
-
OR today.
Anticipate routine post operative management.
Impression / Plan
-
Impression/Plan: 44 y/o female with secundum ASD unsuitable for percutaneous closure, atypical atrial flutter + left atrial appendage thrombus, HTN and a history of tobacco abuse admitted for heparin bridging prior to surgical ASD closure and LAAE.
#Secundum atrial septal defect:
-Chronic. Anatomically inappropriate for percutaneous closure.
-OR today.
-Anticipate routine post operative care.
-Wean vent to extubate.
-Titrate pressors/inotropes for a MAP of > 65 mmHg, CI > 1.8 L/min/m2.
-Incentive spirometry.
-Ambulate when appropriate.
#Typical atrial flutter, PAF/Left atrial appendage thrombus:
-Chronic, stable.
-Currently in atrial flutter. When HR's get fast in AF, she feels CP/chest congestion feeling. Currently feeling fine and HR in 70's.
-Rate/rhythm control with diltiazem.
-[id number] score = 4 for (female, hypertension, and thrombus x2).
-Therapeutic anticoagulation with heparin gtt.
-Surgical plan as above.
#HTN:
-Chronic, stable.
-Continue diltiazem.
#Hx smoking:
-She should remain smoke free moving forward.
Subjective/Interval History:
In OR today.
DATA:
CT Chest, 11/21/3034:
IMPRESSION:
1. No acute pulmonary process.
2. Moderate cardiomegaly. No calcific atherosclerotic changes of aorta or coronary arteries identified.
Carotid Duplex, 11/21/2024:
IMPRESSION: No significant carotid bulb plaque demonstrated on either side, and no evidence of hemodynamically significant carotid stenosis as per modified Society of Radiologists in Ultrasound consensus criteria (IAC carotid criteria white paper,
2020).
ANTHONY 10/30/24:
Normal left ventricular size, wall thickness and systolic function. Estimated LVEF 55-60%.
Enlarged right ventricular size. Systolic function is within normal limits.
Right atrial size is moderately dilated.
Mild/moderate tricuspid regurgitation.
Large secundum atrial septal defect is seen.
Compared to ANTHONY 09/18/24: left atrial appendage thrombus is still present, but smaller (1.3 cm x 0.8 cm, compared to 0.6 cm x 0.3cm).
Cardiac Catheterization, 08/09/2024:
CONCLUSIONS:
1. Left dominant circulation with no coronary artery disease. 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
2. Mildly elevated filling pressures (LVEDP = 15 mmHg, PCWP = 15 mmHg at 79.1 kg).
3. Large [id number]-[id number] shunt at the atrial level, consistent with previously diagnosed atrial septal defect. QP: QS = 2.29.
Physical Exam
Vital Signs/Labs
Vital Signs
Temp Pulse Resp BP Pulse Ox
36.5 C 73 15 119/88 96
11/24/24 05:30 11/24/24 06:04 11/24/24 05:30 11/24/24 06:04 11/24/24 05:30
11/22/24 11/23/24 11/24/24
11:59 11:59 11:59
Actual Weight 77.8 kg 78.1 kg 77.6 kg
11/23/24 04:01
11/23/24 04:01
PT 15.6 Sec (11.4-14.6) H 11/21/24 12:55
INR 1.21 11/21/24 12:55
APTT 108.7 Sec (23.4-35.0) H 11/24/24 05:41
Magnesium 2.0 mg/dl (1.6-2.3) 11/23/24 04:01
LAB Results
11/21/24
15:03
Troponin I < 0.012
Physical Exam
Constitutional: No acute distress and Comfortable
EENT: Other (ET tube in place.)
Neuro/Psych: Other (Intubated/sedated.)
Data Reviewed
-
Date of Service: November 24, 2024
Medical Decision Making: Reviewed Test Results, Test Interpretation and Review of Case with other Provider
EKG: Tracing Personally Visualized and interpreted and Report Reviewed by me
Echo: Tracing Personally Visualized and interpreted and Report Reviewed by me
X-Ray/CT/US/MRI/NUC/PET: Image Personally Visualized and interpreted and Report Reviewed by me
Medical Tests (PFT, Pathology etc): Image Personally Visualized and interpreted and Report Reviewed by me
Labs: Labs Reviewed by me
Old Records: Reviewed
[2024-11-24 07:39] LABS: ACT+ - POC 148 Seconds (82-134)
--- NOTE | 2024-11-24 07:58 | CM ---
Reviewed chart. Ms. Ramsey is in the operating room today. Prior to admission she resides with her mother in a one story with two steps to enter. Prior to admission she was independent with ambulation and adls. She does not have any DME in the
home. She states she has a prescription plan and uses [facility]. Her mother will be home to assist in her care if needed. Medical work-up in progress. The discharge plan is to return home with her mother and a home visit by the Transitional
Care Nurse when medically stable.
[2024-11-24 08:06] LABS: Urine Character Clear (Clear)
[2024-11-24 08:54] LABS: ACT+ - POC 501 Seconds (82-134)
[2024-11-24 09:00] LABS: Urine White Cell 0-2 /HPF (0-5)
[2024-11-24 09:05] LABS: Urine Squamous Cell >30 /LPF (Few)
[2024-11-24 09:05] LABS: B.E. - POC -0.7 mmol/L; Glucose - POC 113 mg/dl (70-99); HCO3 - POC 24 mmol/L (21-28); Hematocrit - POC 36 % PCV (37-47); Hemodilution- POC No; Hemoglobin Calculated - POC 12.2; Ionized Calcium - POC 1.19 mmol/L (1.15-1.33); Lactate - POC 0.46 mmol/L (0.36-0.75); O2 Saturation %Calculated-POC 99.6 % (94-98); PCO2 - POC 41 mmHg (35-48); PO2 - POC 186 mmHg (83-108); Potassium - POC 3.6 mmol/L (3.5-5.1); Sodium - POC 136 mmol/L (136-145); Specimen Type - POC Arterial; pH - POC 7.38 (7.35-7.45)
[2024-11-24 09:17] LABS: ACT+ - POC 622 Seconds (82-134)
[2024-11-24 09:36] LABS: B.E. - POC 1.2 mmol/L; Glucose - POC 139 mg/dl (70-99); HCO3 - POC 25 mmol/L (21-28); Hematocrit - POC 35 % PCV (37-47); Hemodilution- POC Yes; Hemoglobin Calculated - POC 11.9; Ionized Calcium - POC 0.94 mmol/L (1.15-1.33); Lactate - POC 0.72 mmol/L (0.36-0.75); O2 Saturation %Calculated-POC 99.9 % (94-98); PCO2 - POC 35 mmHg (35-48); PO2 - POC 292 mmHg (83-108); Potassium - POC 4.4 mmol/L (3.5-5.1); Sodium - POC 136 mmol/L (136-145); Specimen Type - POC Arterial; pH - POC 7.46 (7.35-7.45)
[2024-11-24 09:49] LABS: ACT+ - POC 530 Seconds (82-134)
[2024-11-24 10:09] LABS: B.E. - POC 0.3 mmol/L; Glucose - POC 189 mg/dl (70-99); HCO3 - POC 24 mmol/L (21-28); Hematocrit - POC 33 % PCV (37-47); Hemodilution- POC Yes; Hemoglobin Calculated - POC 11.3; Ionized Calcium - POC 1.02 mmol/L (1.15-1.33); Lactate - POC 0.93 mmol/L (0.36-0.75); O2 Saturation %Calculated-POC 99.9 % (94-98); PCO2 - POC 35 mmHg (35-48); PO2 - POC 277 mmHg (83-108); Potassium - POC 4.7 mmol/L (3.5-5.1); Sodium - POC 137 mmol/L (136-145); Specimen Type - POC Arterial; pH - POC 7.45 (7.35-7.45)
[2024-11-24 10:25] LABS: ACT+ - POC 533 Seconds (82-134)
[2024-11-24 10:48] LABS: B.E. - POC -5.2 mmol/L; Glucose - POC 136 mg/dl (70-99); HCO3 - POC 21 mmol/L (21-28); Hematocrit - POC 31 % PCV (37-47); Hemodilution- POC Yes; Hemoglobin Calculated - POC 10.7; Ionized Calcium - POC 1.03 mmol/L (1.15-1.33); Lactate - POC 2.09 mmol/L (0.36-0.75); O2 Saturation %Calculated-POC 99.8 % (94-98); PCO2 - POC 45 mmHg (35-48); PO2 - POC 265 mmHg (83-108); Potassium - POC 4.0 mmol/L (3.5-5.1); Sodium - POC 142 mmol/L (136-145); Specimen Type - POC Arterial; pH - POC 7.28 (7.35-7.45)
[2024-11-24 10:50] LABS: ACT+ - POC 126 Seconds (82-134)
--- NOTE | 2024-11-24 10:56 | W.PN.CT.SURG ---
CT Surgery Operative Note
-
CARDIAC SURGERY OPERATIVE REPORT
Preoperative Diagnosis: Secundum ASD, with large shunt fraction, new onset atrial fibrillation atrial flutter with left atrial appendage clot
Postoperative Diagnosis: Same
Procedure(s) Performed:
1. Standard sternotomy with aortic and bicaval cannulation
2. Secundum ASD repair with bovine pericardial patch, measured approximately 3 x 2.5 cm
3. Biatrial cryo maze, surgical
4. Left atrial appendage exclusion after exploration [35 mm device]
5. Simple tricuspid valve repair [32 mm band annuloplasty]
6. Placement of temporary atrial ventricular pacing wires
7. Transesophageal echocardiography
Date of Surgery: 11/24/24
Comorbidities:
1. New onset atrial flutter/fibrillation
2. Presumed left atrial appendage clot/thrombus
3. Secundum ASD, large shunt fraction with [id number] shunt and dilated RV with normal preserved function
4. Mild mitral valve insufficiency, degenerative (type II)
5. Hypertension
6. Former tobacco abuser
Attending Surgeon: Jonny Cohn MD, MS
Assistants: Dulce Maria Almanza PA-C (present and necessary to assistant real estate manager, retraction, suction, exposure, suture management, and wound closure under my direction)
Anesthesiology: Fermin Ha MD and Kendrick Navarro CRNA
Scrub and Circulating RNs: Saniya Holguin RN, Kathy Cuellar RN
Academic Associate: Mike Mohan CCP
Anesthesia: GETA
EBL: per perfusion records
Products: None
CPB Time: 91 minutes
Aortic Cross Clamp Time: 76 minutes
Indication(s) for Procedures: This is a 44-year-old female with significant show infection. She was found to have a left atrial thrombus and new-onset atrial fibrillation atrial flutter, which she is unable to sense. The plan for multidisciplinary
standpoint to allow her some time on anticoagulation to resolve this clot. Multiple months past with no significant resolution and so she was offered surgical resection of her left atrial appendage, left atrial and right atrial maze as well as
closure of her ASD.
Mitral Valve Description: Slightly Do appearing valve with very shortened and retracted posterior leaflet. There was a nonholosystolic mitral valve jet look to be mild may be mild to moderate at worst.
Tricuspid valve description: Severely dilated tricuspid annulus of over 4 cm with at least moderately severe tricuspid valve insufficiency secondary to functional process
Findings: Her left ventricular ejection fraction was normal preoperatively. Her RV was dilated but the function was preserved. Following surgery her EF remained the same which was 60% and RV function was normal but maintained its dilated state.
Given the concern for the left atrial thrombus, we immediately crossclamped after going on cardiopulmonary bypass. I then isolated the SVC and IVC and open of the right atrium and looked down the ASD with a small fiberoptic camera. There was no
obvious evidence of a left atrial appendage thrombus. There was a lot of infolding of the tissue and some trabecular that may have been what was seen on ANTHONY. I then also inspected and looked for the left sided pulmonary veins and the right side
pulmonary veins which were all visualized. I then turned my attention back towards the ASD closure. A bovine pericardial patch was fashioned with the smooth side facing the left atrium. This patch measured approximately 3 x 3.5 cm. The patch was
then anchored at 2 corners and then sewn circumferentially with 4-0 Prolene. Multiple reinforcement sutures were placed around the patch. The tricuspid valve was then repaired using a total of 9 nonpledgeted 2 Ethibond sutures from the anterior
septal commissure heading clockwise towards the midportion of the septal leaflet. This anchored a [address] with core knots. There is no residual tricuspid valve insufficiency and occlusion of the case. A full right atrial and left
atrial maze was performed using cryo. Please see the ablation lines listed below. The left atrial appendage tip was then also incised and we looked down the left atrial appendage for any evidence of clot or abnormality. None was identified. Left
atrial appendage was then clipped with a 35mm device. A Gridley will be placed postoperatively. I did preemptively place her on 5 to Dobutrex given the significant shunting concern for possible RV LV dysfunction. After short period of AV pacing, she
regained her eyak sinus rhythm. There is no residual shunt across the ASD and flow in all pulmonary veins were visualized on ANTHONY. The mitral valve leakage remained the same. I opted not to intervene on this.
Ablation Lines:
1. Box lesion to posterior LA wall
2. WINSOME lesion + WINSOME Exclusion
3. Coronary sinus lesion
4. Posterior mitral annular line toward P2/P3
5. Tricuspid annular line
6. RAA line
7. SVC and IVC lines
Specimen(s): None.
Prosthesis:
1. Bovine pericardial patch, serial number [id number]
2. Medtronic 32 mm triad band, 7 number [id number]
3. 35mm left atrial appendage exclusion clip, SN [id number]
Description of Procedure: The patient was taken to the operating room. Their identity and procedure to be performed were verified and they were positioned supine on the operating table. Induction via general anesthesia with endotracheal intubation
was performed and central venous access and arterial monitoring were inserted. A preoperative transesophageal echocardiogram was performed to assess cardiac function and valvular function. The patient was then prepped and draped from chin to feet in
a sterile fashion. A preoperative time-out was performed with all members of the team present. A midline chest incision was performed along with median sternotomy. The innominate vein was isolated. Full heparinization was given (a total of 40,000
units). We created a pericardial well. The aortic cannulation site was chosen where it was soft, pliable, and free of calcium. Cannulation was performed with an arterial cannula in the ascending aorta, angled metal tip cannular in the superior vena
cava and straight bendable cannula in the inferior vena cava. The arterial cannula line had an appropriate bounce and correlating pressures. Next, a root vent/antegrade cannula was inserted into the ascending aorta. The ACT was confirmed to be over
400 and retrograde autologous priming was performed before commencing cardiopulmonary bypass. The pulmonary artery was away from the aorta to facilitate a clamp site. Sondergaard�s groove was developed after creating the oblique sinus. The
aortic cross-clamp was placed after decreasing the flow on the bypass and mean arterial pressure. A total of 1.0L initial dose of antegrade Del-Nido cardioplegia solution was given and planned for re-dosing every 60 minutes as necessary. There was
rapid electro-mechanical arrest of the heart at 180 cc of cardioplegia. Cold slush was placed into a lap on the RV and we systemically cooled to 34 degrees centigrade.
At this point carbon oxide was used to flood the field. Isolated the SVC and IVC using Vesseloops and open the right atrium. The ASD was closely visualized. I inspected for the coronary sinus and the pulmonary veins. I used a small fiberoptic
camera in order to go across the ASD and visualize the veins as well as left atrial appendage. There is no obvious thrombus visualized but some infolding of left atrial appendage tissue. At this point I was satisfied this was a secundum ASD and
not a sinus stenosis and so I performed the cryoablation lines on the right side and allowed it to thaw meanwhile I fashioned a patch of bovine pericardium and anchored this at 2 apices and then sewed it around circumferentially with 4-0 Prolene.
Multiple repair sutures were also placed around as reinforcement. The tricuspid valve was leaking significantly preoperatively and annulus was severely dilated and so a 32 mm band was anchored in place with 9 sutures. I then rotated the heart
medially and cut the tip of the left atrial appendage off and looked down with a fiberoptic camera to see any clots. None were identified. A clip was then applied flush the base here. At this point I turned my attention towards the left atrium
and we entered through Sondergaard's groove. Again using the camera and direct visualization I inspected for any thrombus or clots were identified. The left atrial appendage appeared to be totally occlusive. Cryo lines were then performed here in
the left atrial appendage was then closed with 3-0 Prolene in the usual fashion as a single layer. De-airing maneuvers were performed and temporary bipolar ventricular pacing wires were placed on the base of the right ventricle. The patient was
placed in a Trendelenburg position and flows on bypass were lowered. The aortic cross clamp was removed and flows were slowly brought back up. The left atrial suture line was hemostatic. While the heart was reperfusing, and temporary pacing at a
low rate, the right atrium was then closed in 2 layers using 5-0 Prolene. The snares then removed off the SVC and IVC and additional de-airing maneuvers were then performed.
Transesophageal echocardiography revealed no residual shunt across the ASD patch repair and no residual TR and ventricular function was normal. Once de-airing was satisfactory the root vent was removed. Additional atrial pacing wires were placed at
the SVC for atrial junction. After verifying acceptable parameters, we initiated weaning from cardiopulmonary bypass. Once we were off cardiopulmonary bypass, the venous cannulas was clamped and removed sequentially. A test dose of protamine was
administered and the patient was monitored for any adverse reaction before resuming protamine. Once half of the protamine dose was delivered, pump suckers were turned off and the systolic blood pressure was lowered for aortic decannulation. The
aortic cannula was removed and purse strings were tied down. All cannulation sites were oversewn with a 4-0 prolene. The left atrial suture line was inspected and hemostasis was confirmed. Mediastinal hemostasis was obtained. Two #24 Anil drains
were placed within the pericardium. The sternum was approximated with 4 #7 single and 3 #8 double stainless steel wires. Fascia was approximated with #1 vicryl suture. The subcutaneous, dermis and epidermis were closed in layers in a running
fashion. The skin wound was cleansed and dressed.
All instrument, sponge, and needle counts were confirmed to be correct x 2 at the end of the operation. The patient was transferred to the cardiac intensive care unit in critical but stable condition.
I, Dr. Jonny Cohn, was present, scrubbed for, and performed all critical elements of this procedure.
Jonny Cohn MD, MS
Cardiothoracic Surgeon
[facility]
This dictation was created using the [employer] dictation system. Please excuse any grammatical, typographical, or 'sound alike' errors
[2024-11-24 11:10] LABS: B.E. - POC -1.6 mmol/L; Glucose - POC 73 mg/dl (70-99); HCO3 - POC 23 mmol/L (21-28); Hematocrit - POC 31 % PCV (37-47); Hemodilution- POC Yes; Hemoglobin Calculated - POC 10.4; Ionized Calcium - POC 1.22 mmol/L (1.15-1.33); Lactate - POC 3.44 mmol/L (0.36-0.75); O2 Saturation %Calculated-POC 99.9 % (94-98); PCO2 - POC 37 mmHg (35-48); PO2 - POC 341 mmHg (83-108); Potassium - POC 3.3 mmol/L (3.5-5.1); Sodium - POC 140 mmol/L (136-145); Specimen Type - POC Arterial; pH - POC 7.40 (7.35-7.45)
--- NOTE | 2024-11-24 12:04 | W.PN.UPDATE ---
Update Note
Progress Note Update
44-year-old female was diagnosed with atrial flutter in July and started on Dabigatran. Attempted ANTHONY guided cardioversion on 09/18/24 aborted due to newly identified large secundum ASD with significant shunt and left atrial appendage thrombus.
Patient has been anticoagulated and repeat echocardiogram on 10/30/2024 reported preserved EF at 55% with no regional wall motion abnormality. Left atrial appendage thrombus was still present but smaller. Therefore patient was admitted on 11/21 for
Pradaxa to IV heparin conversion in preparation for surgery. Last dose of dabigatran was 11/21/2024.
IV fluids: 1300
U.O.:� 350
Blood:� none
Wires:� A + V
Drips: Dobut @ 3, Precedex @ 0.6
�
NEURO: sedated, pupils +2mm B/L
RESP: #8OT @23cm> 500/40%/14/5. Lungs clear B/L. 2 mediastinal (35cc on arrival) and L pleural (60cc on arrival) chest tubes to -20cm suction. Sanguineous drainage
CV: RRR +S1, S2, no S3, no�rub, no murmur. Dermabond to median sternotomy. RIJ w/[place] locked @ 35cm-unable to float into position
ABD: large, round, soft, no BS
EXT: no edema, +2/4 DP pulses B/L, no femoral bruit, right femoral A-line intact
: Neal with clear yellow urine
�
A/P: POD #0 s/p Secundum ASD repair with bovine pericardial patch, biatrial cryo maze, left atrial appendage exclusion [35 mm device], tricuspid valve repair [32 mm band annuloplasty]
ANTHONY: report pending
- wean and extubate
- will need instruction regarding antibiotic prophylaxis for dental and invasive procedures
- unable to float [place] despite repositioning>removed
�
# acute surgical blood loss anemia-expected
- trend CBC
�
# Atrial fibrillation
- currently lit @ 40>AV paced @ 70BPM
- on Dabigatran and Diltiazem at home
�
[2024-11-24 12:05] LABS: Glucose - Point of Care 95 mg/dl (70-99)
[2024-11-24 12:11] LABS: B.E. -1.9 mmol/L; HCO3 22.2 mmol/L (21-28); O2 Saturation % 100.0 % (94-98); PCO2 35 mmHg (32-35); PO2 217 mmHg (83-108); Potassium 3.3 mMOL/L (3.5-5.1); Sodium 137 mMOL/L (136-145)
[2024-11-24 12:25] LABS: INR 1.26; PT 16.1 Sec (11.4-14.6)
--- NOTE | 2024-11-24 12:25 | PTCARENOTE ---
Received pt from [facility]; pt intubated and sedated; Pupil size 2mm and reactive; 100% AV paced on monitor and VSS; RIJ Cordis, [place] floated in OR CRX completed and [place] currently not in right position awaiting MDs next order, Right femoral A-line and
PIV x1 patent; Dr Cohn at bedside and refloating [place] into position; new Portable CRX ordered; A/V epicardial wires in place on set to DDDI 70/10/10/0.4/0.8; Dobutamine, Cardene, Insulin, Precedex infusing see flow sheet for details; Lungs
diminished; ETT 8 22 @ lip; SIMV 40%, 500/5/14; CT x2 to -20 wall suction no air leak and no crepitus noted; hypoactive bowel sounds; Neal catheter draining clear yellow urine; palpable pulses throughout; no edema noted; all surgical sites C/D/I;
see nursing documentation for further details.
[2024-11-24 12:26] LABS: APTT 23.7 Sec (23.4-35.0)
[2024-11-24 12:32] LABS: Blood Urea Nitrogen 8 mg/dl (7-17); Estimated Creatinine Clearance 103 ml/min; Glucose 96 mg/dl (70-99); Magnesium 2.6 mg/dl (1.6-2.3)
[2024-11-24 12:34] LABS: Hematocrit 35.6 % (37.0-47.0); Hemoglobin 12.1 g/dL (12.0-16.0); Platelet Count 134 10^3/uL (130-400)
[2024-11-24] MEDS: KCL 50 IV ×2 (13:06→14:02)
[2024-11-24] MEDS: NSS 500 IV (13:07)
--- NOTE | 2024-11-24 13:07 | PTCARENOTE ---
CRX reviewed with CTNP; [place] Genet catheter removed at this time per CTNP order.
[2024-11-24 13:13] LABS: Glucose - Point of Care 153 mg/dl (70-99)
[2024-11-24 13:59] LABS: Glucose - Point of Care 157 mg/dl (70-99)
[2024-11-24] MEDS: ANCEF 10 IV ×2 (14:03)
[2024-11-24] MEDS: NEURONTIN PO ×3 (14:03→23:03)
[2024-11-24] MEDS: OFIRMEV 100 IV (14:27)
[2024-11-24 14:58] LABS: Glucose - Point of Care 130 mg/dl (70-99)
--- NOTE | 2024-11-24 15:00 | CON.INTV ---
Consultation
Consultation Request
Date/Time Consultation Requested: 11/24/2024
Date/Time Consultation Performed: 11/24/2024
Medical History
-
Chief Complaint: Dyspnea
History of Present Illness:
Patient is a 44-year-old fell male with known history of atrial flutter/atrial fibrillation on chronic anticoagulation with Pradaxa. Patient subsequently had additional imaging performed including ANTHONY which was suggestive of a large secundum ASD
with significant shunt fraction along with suspected thrombus in the left atrial appendage. Patient subsequently was evaluated in CT surgery clinic. She was not felt to be a candidate for percutaneous closure. She was admitted to the hospital,
dabigatran was stopped and patient was transition to heparin. She was taken to the OR for definitive surgical repair and postprocedure, was admitted to cardiovascular ICU. Oiler [employer] Greaser consultation was requested for further input.
Past Medical History
Past Medical History: Reports Arrhythmia (Atrial fibrillation), HTN and Other (scoliosis)
Past Surgical History: Reports None
Social History
Tobacco: Former Smoker (quit 1 month ago)
Alcohol: Occasional
Drug: None
Personal: Single
Living: With Family
Employment: Employed
Family History
Family History: Not pertinent
Allergies / Home Medications
Allergies
Allergy/AdvReac Type Severity Reaction Status Date / Time
pollen extracts Allergy Unknown Verified 07/10/24 09:07
Home Medications
�Medication �Instructions �Recorded �Confirmed �Last Taken �Type
acetaminophen 500 mg tablet 500 mg PO QID PRN pain 08/02/24 11/21/24 11/21/24 09:00 History
diltiazem HCl 360 mg 360 mg PO DAILY Blood Pressure 08/02/24 11/21/24 11/20/24 19:00 History
tablet,extended release 24 hr
(Matzim [place])
dabigatran etexilate 150 mg capsule 150 mg PO BID Blood Clot 10/30/24 11/21/24 11/21/24 07:00 History
Prevention/Tx
Review of Systems
-
Unable to Obtain full review of systems at this time due to: Patient Intubation
Vitals / Labs / Diagnostic Testing
Vital Signs
Temp Pulse Resp BP Pulse Ox
97.8 F 70 14 108/80 100
11/24/24 14:59 11/24/24 14:00 11/24/24 14:59 11/24/24 13:50 11/24/24 14:59
Lab Data
11/24/24 12:02
Laboratory Results
11/24/24 11/24/24
05:41 12:02
PT 16.1 H
INR 1.26
APTT 108.7 H 23.7
pH 7.41
pCO2 35
pO2 217 H
HCO3 22.2
O2 Delivery Level
Diagnostic Testing:
Physical Exam
-
HEENT: Normocephalic
Cardiovascular: S1/S2
Respiratory: Clear
GI: Soft and Non Distended
Neurology: Other (Sedated, waking up )
Skin: Warm
General: Comfortable
Assessment
-
44-year-old female with known history of ASD with large shunt fraction (L > R), atrial fibrillation with left atrial appendage clot, s/p ASD repair with bovine pericardial patch, left atrial appendage exclusion, simple tricuspid valve repair, maze
procedure, POD # 0
Titrate off pressors per protocol, Dobutamine @ 3, MAP 81
ECHO reviewed with normal function
Management of chest tubes per primary service
On SAT/SBT, anticipate extubation soon
Pain control
RASS goal of 0 to -1
IPSV 5/5
AB.41/35/217
CXR with no obvious opacities/infiltrates, low lung volumes, ETT in good position, curled PA catheter noted on imaging
Extubate per protocol
Maintain supplement oxygen as needed
No prior history of pulmonary disease
Can add nebulizers if needed
Aspiration precautions
Encouraged incentive spirometry, OOB/ambulation/early mobility
Advance diet as tolerated following extubation
GI prophylaxis: Protonix
Monitor critical I/O's
Neal/chest tube output
Hb/platelets postoperatively, mild drift
Trend CBC for now
Can transfuse if indicated for Hb <7, plt <50 in surgical patients
DVT prophylaxis including SCDs
Insulin protocol initiated and ongoing
Transition to SQ/off as indicated per team
Other medical diagnoses:
- New onset atrial flutter/fibrillation. Status post maze procedure now
- Presumed left atrial appendage clot. S/p left atrial appendage exclusion
- Mild mitral valve insufficiency
- Hypertension
- Prior history of smoking
Critical Care time [58] mins -- The patient is admitted for acute critical illness for the treatment of vital organ failure and/or prevention of further life-threatening conditions. Total care includes time spent in review of history, physical exam,
medications, hemodynamic/ventilator parameters, laboratory data, imaging and discussion with house staff, pharmacy, respiratory therapy, farm butcher, and nursing
Data:
ETT 10/2024: 1. Normal left ventricular size, wall thickness and systolic function. Estimated LVEF 55-60%.
2. Enlarged right ventricular size. Systolic function is within normal limits.
3. Right atrial size is moderately dilated.
4. Mild/moderate tricuspid regurgitation.
5. Large secundum atrial septal defect is seen.
6. Compared to ANTHONY 09/18/24: left atrial appendage thrombus is still present, but smaller
C 07/2024: 1. Left dominant circulation with no coronary artery disease. 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
2. Mildly elevated filling pressures (LVEDP = 15 mmHg, PCWP = 15 mmHg at 79.1 kg).
3. Large goaq-qq-cceao shunt at the atrial level, consistent with previously diagnosed atrial septal defect. QP: QS = 2.29.
Chest CT 10/2024: 1. No acute pulmonary process.
2. Moderate cardiomegaly. No calcific atherosclerotic changes of aorta or coronary arteries identified.
--- NOTE | 2024-11-24 15:34 | PTCARENOTE ---
Respiratory at bedside and pt placed on CPAP.
[2024-11-24 16:02] LABS: Glucose - Point of Care 146 mg/dl (70-99)
[2024-11-24 16:12] LABS: B.E. - POC -1.4 mmol/L; Blood Urea Nitrogen - POC 9 mg/dl (3-120); Chloride - POC 109 mmol/L (96-111); Creatinine - POC 0.78 mg/dl (0.3-1.0); Glucose - POC 139 mg/dl (70-99); HCO3 - POC 24 mmol/L (21-28); Hematocrit - POC 38 % PCV (37-47); Hemodilution- POC Yes; Hemoglobin Calculated - POC 12.9; Ionized Calcium - POC 1.31 mmol/L (1.15-1.33); Lactate - POC 2.21 mmol/L (0.36-0.75); O2 Saturation %Calculated-POC 99.4 % (94-98); PCO2 - POC 42 mmHg (35-48); PO2 - POC 160 mmHg (83-108); Potassium - POC 4.1 mmol/L (3.5-5.1); Sodium - POC 146 mmol/L (136-145); Specimen Type - POC Arterial; pH - POC 7.37 (7.35-7.45)
--- NOTE | 2024-11-24 16:18 | PTCARENOTE ---
CTNP at bedside and EPOC resulted/reviewed; respiratory at bedside and pt extubated; 6LNC 100%; assessment unchanged; A/V paced on monitor and VSS; R Bel SOCCER REFEREE at bedside to remove right femoral A-line.
[2024-11-24 16:24] LABS: Hematocrit 36.4 % (37.0-47.0); Hemoglobin 12.5 g/dL (12.0-16.0); Platelet Count 156 10^3/uL (130-400)
[2024-11-24] MEDS: ROXICODONE 5 MG PO (17:04)
[2024-11-24] MEDS: LOW STRENGTH ASPIRIN 81 MG PO (17:04)
[2024-11-24] MEDS: ZOFRAN 4 MG IV (17:04)
[2024-11-24] MEDS: ANCEF 5 IV (17:11)
[2024-11-24 18:06] LABS: Glucose - Point of Care 101 mg/dl (70-99)
[2024-11-24] MEDS: SENOKOT PO (19:50)
[2024-11-24] MEDS: REGLAN 10 MG IV (19:57)
[2024-11-24 20:17] LABS: Glucose - Point of Care 123 mg/dl (70-99)
[2024-11-24] MEDS: TORADOL 15 MG IV (20:48)
--- NOTE | 2024-11-24 21:00 | PTCARENOTE ---
Patient received resting in bed. Patient A+A+Ox3. No neurological deficits noted. Patient's sister at bedside. Patient with c/o nausea. PA made aware. Reglan 10 mg IV ordered and administered. No vomiting. O2 at 2L via NC. SpO2 99%. Two
Mediastinal chest tubes - Intact and patent - 20 ml red drainage - No air leak. AV Wires intact. 100% AV Paced. A 70/10/0.4 V 70/10/0.8 Occasional PVC. Patient with no c/o chest pain, pressure or discomfort. Abdomen soft, nontender.
Hypoactive to normoactive bowel sounds. No BM. Neal catheter - Temperature sensing - Light ricardo, yellow urine - Outputs as documented. Sternal incision intact - Surgical adhesive - Open to air. Surgical bra. Right groin dressing intact.
Positive, palpable pulses. Trace edema. Right I.J. Cordis. Dobutamine gtt at 3 mcq/kg/min (6.9 ml/hr). Insulin gtt. Labs collected and sent. K 4.5 Mixed Venous 63.9 Ionized Calcium 1.18. IV Toradol 15mg for pain management. Assessment as
documented.
[2024-11-24 21:11] LABS: Potassium 4.5 mmol/L (3.5-5.1)
[2024-11-24] MEDS: LR 250 ML IV (21:20)
[2024-11-24 22:15] LABS: Glucose - Point of Care 102 mg/dl (70-99)
--- NOTE | 2024-11-24 22:30 | PTCARENOTE ---
Patient sleeping. IVF Bolus LR 250 ml administered for decreased urine output. PA for CT Surgery, Chandrika Perdomo PA-C, increased rate of Epicardial Temporary Pacemaker to 76. No further changes from previous assessment.
[2024-11-24] MEDS: TYLENOL PO (23:00)
[2024-11-24] MEDS: DILAUDID 0.25 MG IV (23:39)
[2024-11-24 23:51] LABS: Glucose - Point of Care 104 mg/dl (70-99)
[2024-11-25] VITALS (53 sets, daily range): BP systolic 113–140; BP diastolic 60–97; PULSE 70; O2SAT 97; BMI 30.4; BMI 30.2
--- NOTE | 2024-11-25 00:15 | PTCARENOTE ---
IV Dilaudid 0.25mg given for pain management. No further changes from previous assessment.
[2024-11-25] MEDS: DILAUDID 0.5 MG IV (01:19)
[2024-11-25] MEDS: ZOFRAN 4 MG IV (01:27)
[2024-11-25] MEDS: ANCEF 5 IV ×2 (01:40→10:23)
[2024-11-25] MEDS: LR 250 ML IV ×3 (01:40→16:36)
[2024-11-25 01:57] LABS: Glucose - Point of Care 132 mg/dl (70-99)
--- NOTE | 2024-11-25 02:15 | PTCARENOTE ---
Patient with c/o 8/10 back pain and nausea. IV Dilaudid 0.5mg administered. Zofran 4mg IV administered. IVF Bolus LR 250 ml administered for decreased urine output. Patient's back pain resolved. No further c/o nausea. Patient resting in bed.
Assessment/Interventions as documented.
[2024-11-25] MEDS: OFIRMEV 100 IV (03:04)
[2024-11-25] MEDS: NOVOLIN R INSULIN INFUSION 100 IV (03:28)
[2024-11-25] MEDS: TORADOL 15 MG IV ×3 (03:30→21:55)
[2024-11-25 03:52] LABS: Glucose - Point of Care 114 mg/dl (70-99)
[2024-11-25 04:01] LABS: Hematocrit 32.8 % (37.0-47.0); Hemoglobin 11.1 g/dL (12.0-16.0); Mean Corp Hgb Conc. 33.8 g/dL (33.0-37.0); Mean Corpuscular Volume 90.9 fL (81.0-99.0); Platelet Count 140 10^3/uL (130-400); Red Cell Dist. Width 12.9 % (11.5-14.5)
[2024-11-25] MEDS: TYLENOL PO (05:07)
[2024-11-25 05:09] LABS: Blood Urea Nitrogen 16 mg/dl (7-17); Calcium 8.3 mg/dl (8.4-10.2); Carbon Dioxide 24 mmol/L (22-30); Chloride 111 mmol/L (98-107); Estimated Creatinine Clearance 103 ml/min; Glucose 110 mg/dl (70-99); Magnesium 2.1 mg/dl (1.6-2.3); Potassium 4.4 mmol/L (3.5-5.1); Sodium 139 mmol/L (135-145); eGFR > 60.00
[2024-11-25] MEDS: ROXICODONE 5 MG PO ×3 (05:10→19:28)
--- NOTE | 2024-11-25 05:30 | PTCARENOTE ---
Patient A+A+Ox3. AM lab work collected and sent. CHG bath and linens changed. EKG Completed - Pacemaker paused by PA to obtain EKG. Portable CXR completed. Bed scale weight 80.3 kg. Roxicodone 5mg PO for pain management.
Assessment/Interventions as documented.
[2024-11-25 06:12] LABS: Glucose - Point of Care 105 mg/dl (70-99)
[2024-11-25 08:15] LABS: Glucose - Point of Care 112 mg/dl (70-99)
[2024-11-25] MEDS: MAGNESIUM OXIDE 400 MG PO ×2 (08:47→19:27)
[2024-11-25] MEDS: BACTROBAN 2% OINTMENT 1 APPLIC NASAL ×2 (08:48→19:27)
[2024-11-25] MEDS: LOW STRENGTH ASPIRIN 81 MG PO (08:48)
[2024-11-25] MEDS: NEURONTIN 100 MG PO ×3 (08:48→21:55)
[2024-11-25] MEDS: SENOKOT 8.6 MG PO ×2 (08:48→19:28)
[2024-11-25] MEDS: LIDOCAINE 4% PATCH 1 PATCH TOPICAL (08:48)
[2024-11-25] MEDS: FLEXERIL 5 MG PO ×2 (08:48→16:50)
[2024-11-25] MEDS: PROTONIX 40 MG PO (08:48)
--- NOTE | 2024-11-25 09:10 | PTCARENOTE ---
Received pt from director museum or zoo RN at 0700; pt AAOx3 and resting comfortably in chair; 100% AV paced on monitor and VSS; Epicardial A/V wires in place rate set to DDI 70/10/10/0.4/0.8; RIJ Cordis and PIV x3 Cordis kinked on CTPA at bedside to float
SLIC; Dobutamine, Insulin and Cardene infusing see flow sheet for details; Lungs diminished; IS to 750; CT x2 to -20 wall suction no air leak and no crepitus noted; hypoactive round abdomen; Neal catheter draining yellow urine; palpable pulses
throughout; no edema noted; all surgical sites C/D/I; see nursing documentation for further details.
--- NOTE | 2024-11-25 09:28 | W.PN.ANS.POP ---
Anesthesia Post Operative
- Anesthesia Post Op Note
Vital Signs Stable-See Nursing Note: Yes
Airway Patent: Yes
Adequate Pain Control: Yes
Change in Mental Status: No
Current Postoperative Nausea & Vomiting: No
Anesthesia Complications: No
General Anesthetic Recall: No
Unplanned Admission: No
Post Op Hydration Adequate: Yes
--- NOTE | 2024-11-25 09:29 | W.PN.INTV ---
Today's Communication / Plan
Recommendations
- Incentive spirometry
- Wean dobutamine as tolerated
- Transition insulin to subcu per protocol
- Nursery Technician service will sign off once patient is transferred out of CVICU
Assessment
-
44-year-old female with known history of ASD with large shunt fraction (L > R), atrial fibrillation with left atrial appendage clot, s/p ASD repair with bovine pericardial patch, left atrial appendage exclusion, simple tricuspid valve repair, maze
procedure, POD # 1
Titrate off pressors per protocol, Dobutamine @ 3, MAP 88, nicardipine infusing at 2.5.
ECHO reviewed with normal function
Management of chest tubes per primary service
Patient extubated, currently on room air, saturating 98%. Work of breathing normal. No respiratory distress noted.
Chest x-ray shows mild atelectasis. Encouraged incentive spirometry
History of exercise-induced asthma in childhood, patient eventually grew out of it. Does not use inhalers on a regular basis.
Can add nebulizers if needed
Aspiration precautions
Encouraged incentive spirometry, OOB/ambulation/early mobility
Advance diet as tolerated following extubation
GI prophylaxis: Protonix
Monitor critical I/O's
Neal/chest tube output
Hb/platelets postoperatively, mild drift
Trend CBC for now
Can transfuse if indicated for Hb <7, plt <50 in surgical patients
DVT prophylaxis including SCDs
Insulin protocol initiated and ongoing
Transition to SQ/off as indicated per team
Other medical diagnoses:
- New onset atrial flutter/fibrillation. Status post maze procedure now
- Presumed left atrial appendage clot. S/p left atrial appendage exclusion
- Mild mitral valve insufficiency
- Hypertension
- Prior history of smoking. Patient quit about 3 months ago
- H/o Exercise induced asthma in childhood. Patient grew out of it. No recent symptoms.
Critical Care time [42] mins -- The patient is admitted for acute critical illness for the treatment of vital organ failure and/or prevention of further life-threatening conditions. Total care includes time spent in review of history, physical exam,
medications, hemodynamic/ventilator parameters, laboratory data, imaging and discussion with house staff, pharmacy, respiratory therapy, machinist automotive, and nursing
Data:
ETT 10/2024: 1. Normal left ventricular size, wall thickness and systolic function. Estimated LVEF 55-60%.
2. Enlarged right ventricular size. Systolic function is within normal limits.
3. Right atrial size is moderately dilated.
4. Mild/moderate tricuspid regurgitation.
5. Large secundum atrial septal defect is seen.
6. Compared to ANTHONY 09/18/24: left atrial appendage thrombus is still present, but smaller
LHC 07/2024: 1. Left dominant circulation with no coronary artery disease. 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
2. Mildly elevated filling pressures (LVEDP = 15 mmHg, PCWP = 15 mmHg at 79.1 kg).
3. Large llmh-dl-pydyy shunt at the atrial level, consistent with previously diagnosed atrial septal defect. QP: QS = 2.29.
Chest CT 10/2024: 1. No acute pulmonary process.
2. Moderate cardiomegaly. No calcific atherosclerotic changes of aorta or coronary arteries identified.
Subjective Dataa
Subjective Data
Date of Service:
Date of Service: November 25, 2024
Subjective:
Patient comfortably lying in bed in no acute distress.
Review of Systems
Genitourinary: Other (All 14 systems reviewed and negative except as stated above in the history of present illness. Except for expected postoperative pain)
Objective Data
Data Reviewed
Vital Signs / I&O / Oxygen:
Vital Signs
Temp Pulse Resp BP Pulse Ox
99.6 F 76 16 132/69 98
11/25/24 08:00 11/25/24 09:00 11/25/24 08:00 11/25/24 09:00 11/25/24 08:30
Intake and Output
11/24/24 11/25/24 11/26/24
06:59 06:59 06:59
Intake Total 336 / 336 1546.5 / 1546.5 83.1 / 83.1
Output Total 3525 / 3525 1180 / 1180 160 / 160
Balance -3189 / -3189 366.5 / 366.5 -76.9 / -76.9
SaO2 [CPAP] 100
SaO2 [SIMV] 100
SaO2 98
Nasal Cannula flow liters per 2
minute
Physical Exam
General: Comfortable
HEENT: Normocephalic
Cardiovascular: S1-S2
Respiratory: Clear
GI: Soft and Non Distended
Neurology: Awake and Alert
Skin: Warm
Labs/Micro/Reports
Lab Data
11/25/24 03:48
11/25/24 03:48
Laboratory Results
11/24/24
12:02
PT 16.1 H
INR 1.26
APTT 23.7
pH 7.41
pCO2 35
pO2 217 H
HCO3 22.2
O2 Delivery Level
--- NOTE | 2024-11-25 09:33 | PTCARENOTE ---
CTPA at bedside and floated SLIC into RIJ Cordis; IVF infusing without difficulties.
--- NOTE | 2024-11-25 10:08 | W.PN.CT ---
Today's Communication / Plan
-
-pod #1
-no significant issues overnight
-av-paced @ 76 bpm overnight with occasional PVCs
-underlying rhythm last night was sinus bradycardia with junctional beats and PVCs. Rhythm today is nsr 60s
-gave 500 LR total
-mvO2 was 63.9
-drips: Dobut 3, Cardene 2.5, Insulin
-CT ouputs: meds 170/340 in 12/24 hrs
-wean off Dobut as tolerated, follow mVO2
-follow rhythm
-holding BB and Amio d/t postop bradycardia
-encourage Is, OOB
Assessment / Plan
-
Assessment:
- Secundum ASD, with large shunt fraction, new onset atrial fibrillation atrial flutter with left atrial appendage clot- s/p Secundum ASD repair with bovine pericardial patch, measured approximately 3 x 2.5 cm; Biatrial cryo maze, surgical; Left
atrial appendage exclusion after exploration [35 mm device]; Simple tricuspid valve repair [32 mm band annuloplasty] by Dr. Cohn on 11/24/24, pod #1
-Atrial flutter- on Dabigatran preop
-Large secundum ASD with L -> R shunt
-Mild MR
-Mild-moderate TR
-LVEF 55-60%
-HTN
-Class 1 obesity (BMI 30.3)
-Scoliosis
-Former tobacco use
-S/P L heart Cath, no CAD, 08/09/24
-Acute postop blood loss anemia - stable
-Acute postop atelectasis
-Acute postop bradycardia/junctional rhythm - av-paced postop
Discussed patient care with: Nursing and Care Team
Subjective
-
Date of Service: November 25, 2024
Objective Data
-
Lab Results
11/25/24 03:48
11/25/24 03:48
PT 16.1 Sec (11.4-14.6) H 11/24/24 12:02
INR 1.26 11/24/24 12:02
APTT 23.7 Sec (23.4-35.0) 11/24/24 12:02
Vital Signs
Vital Signs
Temp Pulse Resp BP Pulse Ox
99.6 F 76 16 132/69 98
11/25/24 08:00 11/25/24 09:00 11/25/24 08:00 11/25/24 09:00 11/25/24 09:39
CT Intake/Output/Weight
11/24/24 11/25/24 11/25/24
18:59 06:59 18:59
Intake Total 495.9 / 1546.5 1050.6 / 1546.5 83.1 / 83.1
Output Total 615 / 1180 565 / 1180 160 / 160
Balance -119.1 / 366.5 485.6 / 366.5 -76.9 / -76.9
SaO2: 98
Physical Exam
-
General: Awake and AOx3
Cardiovascular: Regular rate & rhythm (av-paced with PVCs), No Murmurs and No Rub
Respiratory: Decreased Breath Sounds
Sternum: Stable
Incision: Clean, Dry and Intact
Extremities: Edema +1
Abdomen: soft, nontender, nondistended
Data Reviewed
-
Lab Results: Results Reviewed
Medications: Active Meds Reviewed
Chest X-Ray: Report Reviewed and Image Reviewed
ECG: Report Reviewed and Image Reviewed
[2024-11-25 10:22] LABS: Glucose - Point of Care 133 mg/dl (70-99)
--- NOTE | 2024-11-25 10:24 | W.PN.CD ---
Today's Communication / Plan
-
- Continue pacing from the epicardial wires
- Wean pressors
- Likley start Metoprolol from tomorrow.
Impression / Plan
-
Impression/Plan: 44 y/o female with secundum ASD unsuitable for percutaneous closure, atypical atrial flutter + left atrial appendage thrombus, HTN and a history of tobacco abuse admitted for heparin bridging prior to surgical ASD closure and LAAE.
#Secundum atrial septal defect:
- S/p Secundum ASD repair with bovine pericardial patch, measured approximately 3 x 2.5 cm; Biatrial cryo maze, surgical; Left atrial appendage exclusion after exploration [35 mm device]; Simple tricuspid valve repair [32 mm band annuloplasty] by
Dr. Cohn on 11/24/24
-Extubated. OOB to chair.
-Titrate pressors/inotropes for a MAP of > 65 mmHg, CI > 1.8 L/min/m2.
-Incentive spirometry.
-Ambulate when appropriate.
-A and V paced with epicardial wires
-Sinus lit underlying rhythm noted. The underlying rhythm is picking up and is expected to recover.
#Typical atrial flutter, PAF/Left atrial appendage thrombus:
-Chronic, stable.
- Pre op was in AFL - s/p biatrial cryo maze, surgical; Left atrial appendage exclusion
- On Amiodarone [place]oenix-op now.
-[id number] score = 4 for (female, hypertension, and thrombus x2).
-Therapeutic anticoagulation with Dabigatran once bleeding risk is low.
#HTN:
-Chronic, stable.
-Continue diltiazem.
#Hx smoking:
-She should remain smoke free moving forward.
Subjective/Interval History:
OOB to chair. Mild pain. Chest tubes in place.
DATA:
CT Chest, 11/21/3034:
IMPRESSION:
1. No acute pulmonary process.
2. Moderate cardiomegaly. No calcific atherosclerotic changes of aorta or coronary arteries identified.
Carotid Duplex, 11/21/2024:
IMPRESSION: No significant carotid bulb plaque demonstrated on either side, and no evidence of hemodynamically significant carotid stenosis as per modified Society of Radiologists in Ultrasound consensus criteria (IAC carotid criteria white paper,
2020).
ANTHONY 10/30/24:
Normal left ventricular size, wall thickness and systolic function. Estimated LVEF 55-60%.
Enlarged right ventricular size. Systolic function is within normal limits.
Right atrial size is moderately dilated.
Mild/moderate tricuspid regurgitation.
Large secundum atrial septal defect is seen.
Compared to ANTHONY 09/18/24: left atrial appendage thrombus is still present, but smaller (1.3 cm x 0.8 cm, compared to 0.6 cm x 0.3cm).
Cardiac Catheterization, 08/09/2024:
CONCLUSIONS:
1. Left dominant circulation with no coronary artery disease. 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
2. Mildly elevated filling pressures (LVEDP = 15 mmHg, PCWP = 15 mmHg at 79.1 kg).
3. Large wimi-wh-credz shunt at the atrial level, consistent with previously diagnosed atrial septal defect. QP: QS = 2.29.
Physical Exam
Vital Signs/Labs
Vital Signs
Temp Pulse Resp BP Pulse Ox
99.5 F 70 16 123/68 98
11/25/24 10:00 11/25/24 10:20 11/25/24 10:00 11/25/24 10:00 11/25/24 10:23
11/24/24 11/25/24 11/26/24
06:59 06:59 06:59
Actual Weight 77.6 kg 80.3 kg 79.7 kg
11/25/24 03:48
11/25/24 03:48
PT 16.1 Sec (11.4-14.6) H 11/24/24 12:02
INR 1.26 11/24/24 12:02
APTT 23.7 Sec (23.4-35.0) 11/24/24 12:02
Magnesium 2.1 mg/dl (1.6-2.3) 11/25/24 03:48
Physical Exam
Constitutional: No acute distress and Comfortable
EENT: Anicteric and Moist mucous membranes
Cardiovascular: Rhythm & rate is regular, Pedal edema is absent and JVD pressure is normal
Respiratory: Respiratory effort normal and Lungs clear to auscul.
GI: Soft and Normal bowel sounds
Neuro/Psych: Alert, Oriented and AO x 3
Data Reviewed
-
Date of Service: November 25, 2024
Medical Decision Making: Reviewed Test Results, Test Interpretation and Review of Case with other Provider
EKG: Tracing Personally Visualized and interpreted
Echo: Report Reviewed by me
Labs: Labs Reviewed by me
Old Records: Reviewed
Critical Care Time (in minutes): 32
[2024-11-25] MEDS: NSS IV (11:32)
--- NOTE | 2024-11-25 11:33 | PTCARENOTE ---
A/V paced on monitor and VSS; family at bedside and updated on plan of day; assessment unchanged; pt resting comfortably in chair.
[2024-11-25 12:22] LABS: Glucose - Point of Care 98 mg/dl (70-99)
--- NOTE | 2024-11-25 13:13 | PTCARENOTE ---
Insulin drip discontinued per CTPA order.
[2024-11-25] MEDS: TYLENOL 975 MG PO ×2 (13:58→21:55)
[2024-11-25] MEDS: FERRLECIT 110 MG IV (13:58)
--- NOTE | 2024-11-25 15:16 | PTCARENOTE ---
Urine output for 8 hours total 260mls; updated CTPA, per CTPA give 250mls LR bolus; A/V paced on monitor and VSS; assessment unchanged and pt resting comfortably in chair with family at bedside.
--- NOTE | 2024-11-25 17:04 | PTCARENOTE ---
LR 250ml Bolus given for low urine output; A/V paced 100% on monitor and VSS; pt resting comfortably in bed; assessment unchanged.
[2024-11-25] MEDS: REMOVE LIDOCAINE PATCH 1 PATCH REMOVE (19:27)
[2024-11-25] MEDS: DOBUTREX 500 MG 250 IV (19:28)
--- NOTE | 2024-11-25 20:30 | PTCARENOTE ---
Patient received resting in bed watching television. Patient A+A+Ox3. No neurological deficits noted. No c/o headache, dizziness or lightheadedness. Roxicodone 5mg PO for pain management. Room air. SpO2 97%. Two Mediastinal chest tubes -
Intact and patent - 15-20ml red drainage - No air leak. Dressing intact. AV Paced. Temporary Epicardial Pacemaker - AV Wires - A 70/10/0.4 V 70/10/0.8. Patient with no c/o chest pain, pressure or discomfort. Abdomen soft, round, nontender.
Normoactive bowel sounds. No BM. No c/o nausea. No vomiting. Neal catheter - Intact and patent - Ester, yellow urine - Outputs as documented. Generalized edema. Positive, palpable pulses. Right I.J. Cordis with Clymer catheter. Mixed Venous
73.5. Assessment as documented.
[2024-11-25] MEDS: DILAUDID 0.25 MG IV (22:14)
[2024-11-26] VITALS (25 sets, daily range): BP systolic 108–144; BP diastolic 58–80; BMI 31.2
--- NOTE | 2024-11-26 01:00 | PTCARENOTE ---
Dobutamine gtt rate decreased 0.5. Dobutamine gtt now infusing at 1.5 mcq/kg/min (3.5 ml/hr). Patient sleeping. Pain management with Toradol 15mg IV and IV Dilaudid 0.25mg. Assessment/Interventions as documented.
[2024-11-26] MEDS: ROXICODONE 5 MG PO ×2 (02:52→20:50)
[2024-11-26] MEDS: NSS 500 IV (04:55)
[2024-11-26 05:01] LABS: Hematocrit 29.6 % (37.0-47.0); Hemoglobin 9.6 g/dL (12.0-16.0); Mean Corp Hgb Conc. 32.4 g/dL (33.0-37.0); Mean Corpuscular Volume 91.4 fL (81.0-99.0); Platelet Count 126 10^3/uL (130-400); Red Cell Dist. Width 13.1 % (11.5-14.5)
[2024-11-26] MEDS: TYLENOL 975 MG PO ×3 (05:06→20:49)
[2024-11-26] MEDS: FLEXERIL 5 MG PO ×2 (05:06→20:50)
[2024-11-26 05:16] LABS: Blood Urea Nitrogen 18 mg/dl (7-17); Calcium 7.9 mg/dl (8.4-10.2); Carbon Dioxide 28 mmol/L (22-30); Chloride 103 mmol/L (98-107); Estimated Creatinine Clearance 122 ml/min; Glucose 128 mg/dl (70-99); Magnesium 2.1 mg/dl (1.6-2.3); Potassium 4.4 mmol/L (3.5-5.1); Sodium 132 mmol/L (135-145); eGFR > 60.00
[2024-11-26] MEDS: DILAUDID 0.25 MG IV (05:36)
--- NOTE | 2024-11-26 05:41 | W.PN.CT ---
Addendum entered and electronically signed by Jonny Cohn MD 11/26/24 08:56:
I saw and examined the patient.
The PA's note was reviewed and I agree with the note.
Comment:
Looks more comfortable today, more color to her face. Slow A-fib rhythm, AAI pacing in the 70s. Give her couple more days to see if her [place] rhythm recovers. Continue very slow wean of dobutamine. Will hold off on diuresis. DC drains today,
maintain wires.
Original Note:
Today's Communication / Plan
-
-pod #2
-no significant issues overnight, did not need more volume overnight
-av-paced @ 76 bpm overnight with occasional PVCs
-underlying rhythm 11/24 was sinus bradycardia with junctional beats and PVCs. Rhythm today is nsr 60s
-continuing slow dobutamine wean, reduce 0.5 mcg q8hr.
-CT outputs: meds 85/290 in 12/24 hrs
-UOP sluggish but SCr 0.7->0.6 this AM
-follow mVO2 q12
-follow rhythm
-holding BB and Amio d/t postop bradycardia
-TTE planned for Wednesday
-encourage Is, OOB
Assessment / Plan
-
Assessment:
- Secundum ASD, with large shunt fraction, new onset atrial fibrillation atrial flutter with left atrial appendage clot- s/p Secundum ASD repair with bovine pericardial patch, measured approximately 3 x 2.5 cm; Biatrial cryo maze, surgical; Left
atrial appendage exclusion after exploration [35 mm device]; Simple tricuspid valve repair [32 mm band annuloplasty] by Dr. Cohn on 11/24/24, pod #2
-Atrial flutter- on Dabigatran preop
-Large secundum ASD with L -> R shunt
-Mild MR
-Mild-moderate TR
-LVEF 55-60%
-HTN
-Class 1 obesity (BMI 30.3)
-Scoliosis
-Former tobacco use
-S/P L heart Cath, no CAD, 08/09/24
-Acute postop blood loss anemia - stable
-Acute postop atelectasis
-Acute postop bradycardia/junctional rhythm - av-paced postop
Subjective
-
Date of Service: November 26, 2024
Objective Data
-
Lab Results
11/26/24 04:41
11/26/24 04:41
PT 16.1 Sec (11.4-14.6) H 11/24/24 12:02
INR 1.26 11/24/24 12:02
APTT 23.7 Sec (23.4-35.0) 11/24/24 12:02
Vital Signs
Vital Signs
Temp Pulse Resp BP Pulse Ox
99.2 F 70 16 123/69 100
11/26/24 04:00 11/26/24 04:50 11/26/24 04:00 11/26/24 04:30 11/26/24 04:50
CT Intake/Output/Weight
11/25/24 11/25/24 11/26/24
06:59 18:59 06:59
Intake Total 1050.6 / 1546.5 2829.5 / 3335.7 506.2 / 3335.7
Output Total 565 / 1180 535 / 870 335 / 870
Balance 485.6 / 366.5 2294.5 / 2465.7 171.2 / 2465.7
SaO2: 100
Physical Exam
-
General: Awake and Oriented
Cardiovascular: Regular rate & rhythm and No Murmurs
Respiratory: Clear, Equal and Decreased Breath Sounds
Sternum: Stable
Incision: Clean, Dry and Intact
Extremities: Edema +1
Data Reviewed
-
Lab Results: Results Reviewed
Medications: Active Meds Reviewed
Chest X-Ray: Report Reviewed
ECG: Report Reviewed and Image Reviewed
[2024-11-26] MEDS: MAGNESIUM SULFATE 100 IV (06:09)
--- NOTE | 2024-11-26 06:30 | PTCARENOTE ---
Patient A+A+Ox3. IV Dilaudid 0.25mg given for pain management. Patient given CHG bath and linens changed. Chest tube dressing changed. AM lab work collected and sent. Portable CXR completed. EKG obtained - Epicardial pacemaker paused by PRINCIPAL CONSULTING ENGINEER.
Neal catheter removed at 0600. Due to void at 12pm. OOB to chair without difficulty. Standing scale weight 82.5 kg. Mag rider 1,000mg/100ml IV ordered and administered. Assessment/Interventions as documented.
[2024-11-26] MEDS: MAGNESIUM OXIDE 400 MG PO ×2 (07:59→20:49)
[2024-11-26] MEDS: SENOKOT 8.6 MG PO ×2 (07:59→20:50)
[2024-11-26] MEDS: PROTONIX 40 MG PO (07:59)
[2024-11-26] MEDS: NEURONTIN 100 MG PO ×3 (07:59→20:49)
[2024-11-26] MEDS: LOW STRENGTH ASPIRIN 81 MG PO (07:59)
[2024-11-26] MEDS: LIDOCAINE 4% PATCH 1 PATCH TOPICAL (07:59)
[2024-11-26] MEDS: BACTROBAN 2% OINTMENT 1 APPLIC NASAL ×2 (08:00→20:49)
--- NOTE | 2024-11-26 08:47 | PTCARENOTE ---
Received pt from shift lab technician RN at 0700; pt AAOX3 and resting comfortably in chair; A paced on monitor and VSS; Dr Cohn at bedside, Epicardial A/V wires in place and set to AAI 78/10/0.4; RIJ Cordis/SLIC and PIVx2 patent; Dobutamine infusing see
flow sheet for details; Lungs diminished; IS to 1000; CT x2 to -20 wall suction no air leak and no crepitus noted; hypoactive bowel sounds; Neal catheter removed by shift lab technician RN at 0600, pt DTV by 1200; palpable pules throughout; no edema noted;
all surgical sites C/D/I; see nursing documentation for further details.
--- NOTE | 2024-11-26 08:50 | W.PN.CD ---
Today's Communication / Plan
-
- Continue pacing to suppress the AF/FL.
Impression / Plan
-
Impression/Plan: 44 y/o female with secundum ASD unsuitable for percutaneous closure, atypical atrial flutter + left atrial appendage thrombus, HTN and a history of tobacco abuse admitted for heparin bridging prior to surgical ASD closure and LAAE.
#Secundum atrial septal defect:
- S/p Secundum ASD repair with bovine pericardial patch, measured approximately 3 x 2.5 cm; Biatrial cryo maze, surgical; Left atrial appendage exclusion after exploration [35 mm device]; Simple tricuspid valve repair [32 mm band annuloplasty] by
Dr. Cohn on 11/24/24
-Extubated. OOB to chair.
-Metoprolol started. Dobutamine is off now
-Incentive spirometry.
-Ambulate when appropriate.
-A and V paced with epicardial wires
-Sinus lit underlying rhythm noted. The underlying rhythm is picking up and is expected to recover.
#Typical atrial flutter, PAF/Left atrial appendage thrombus:
-Chronic, stable.
- Pre op was in AFL - s/p biatrial cryo maze, surgical; Left atrial appendage exclusion
- On Amiodarone [place]-op now.
-[id number] score = 4 for (female, hypertension, and thrombus x2).
-Therapeutic anticoagulation with Dabigatran once bleeding risk is low.
#HTN:
-Chronic, stable.
-Continue diltiazem.
#Hx smoking:
-She should remain smoke free moving forward.
Subjective/Interval History:
OOB to chair. Mild pain. Chest tubes in place.
DATA:
CT Chest, 11/21/3034:
IMPRESSION:
1. No acute pulmonary process.
2. Moderate cardiomegaly. No calcific atherosclerotic changes of aorta or coronary arteries identified.
Carotid Duplex, 11/21/2024:
IMPRESSION: No significant carotid bulb plaque demonstrated on either side, and no evidence of hemodynamically significant carotid stenosis as per modified Society of Radiologists in Ultrasound consensus criteria (IAC carotid criteria white paper,
2020).
ANTHONY 10/30/24:
Normal left ventricular size, wall thickness and systolic function. Estimated LVEF 55-60%.
Enlarged right ventricular size. Systolic function is within normal limits.
Right atrial size is moderately dilated.
Mild/moderate tricuspid regurgitation.
Large secundum atrial septal defect is seen.
Compared to ANTHONY 09/18/24: left atrial appendage thrombus is still present, but smaller (1.3 cm x 0.8 cm, compared to 0.6 cm x 0.3cm).
Cardiac Catheterization, 08/09/2024:
CONCLUSIONS:
1. Left dominant circulation with no coronary artery disease. 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
2. Mildly elevated filling pressures (LVEDP = 15 mmHg, PCWP = 15 mmHg at 79.1 kg).
3. Large sjeu-ju-rolxa shunt at the atrial level, consistent with previously diagnosed atrial septal defect. QP: QS = 2.29.
Physical Exam
Vital Signs/Labs
Vital Signs
Temp Pulse Resp BP Pulse Ox
99.9 F 70 18 119/71 98
11/26/24 08:00 11/26/24 08:00 11/26/24 08:00 11/26/24 08:00 11/26/24 08:00
11/25/24 11/26/24 11/27/24
06:59 06:59 06:59
Actual Weight 80.3 kg 82.5 kg
11/26/24 04:41
11/26/24 04:41
PT 16.1 Sec (11.4-14.6) H 11/24/24 12:02
INR 1.26 11/24/24 12:02
APTT 23.7 Sec (23.4-35.0) 11/24/24 12:02
Magnesium 2.1 mg/dl (1.6-2.3) 11/26/24 04:41
Physical Exam
Constitutional: No acute distress and Comfortable
EENT: Anicteric and Moist mucous membranes
Cardiovascular: Rhythm & rate is regular, Pedal edema is absent and JVD pressure is normal
Respiratory: Respiratory effort normal and Lungs clear to auscul.
GI: Soft, Non tender and Normal bowel sounds
Neuro/Psych: Alert, Oriented and AO x 3
Data Reviewed
-
Date of Service: November 26, 2024
Medical Decision Making: Reviewed Test Results, Test Interpretation and Review of Case with other Provider
EKG: Tracing Personally Visualized and interpreted
Echo: Report Reviewed by me
Labs: Labs Reviewed by me
Old Records: Reviewed
--- NOTE | 2024-11-26 09:30 | W.PN.INTV ---
Today's Communication / Plan
Recommendations
- Wean Dobutamine infusion as tolerated
- F/u CXR in AM. Check Procalcitonin with elevated WBC and RLL opacity.
- Incentive spirometry
Assessment
-
44-year-old female with known history of ASD with large shunt fraction (L > R), atrial fibrillation with left atrial appendage clot, s/p ASD repair with bovine pericardial patch, left atrial appendage exclusion, simple tricuspid valve repair, maze
procedure, POD # 2
Titrate off pressors per protocol, Dobutamine @ 1.5, MAP 87, off Nicardipine infusion.
ECHO reviewed with normal function
Management of chest tubes per primary service
Patient extubated, currently on room air, saturating 98%. Work of breathing normal. No respiratory distress noted.
Chest x-ray with increased RLL atelectasis vs increased congestion. WBC count up. No purulent expectoration. Clinically less likely pneumonia, monitor for s/s of infection. Consider checking Procalcitonin.
History of exercise-induced asthma in childhood, patient eventually grew out of it. Does not use inhalers on a regular basis.
Can add nebulizers if needed
Aspiration precautions
Encouraged incentive spirometry, OOB/ambulation/early mobility
Advance diet as tolerated following extubation
GI prophylaxis: Protonix
Monitor critical I/O's
Neal/chest tube output
Hb/platelets postoperatively, mild drift
Trend CBC for now
Can transfuse if indicated for Hb <7, plt <50 in surgical patients
DVT prophylaxis including SCDs
Off insulin infusion now.
Other medical diagnoses:
- New onset atrial flutter/fibrillation. Status post maze procedure now
- Presumed left atrial appendage clot. S/p left atrial appendage exclusion
- Mild mitral valve insufficiency
- Hypertension
- Prior history of smoking. Patient quit about 3 months ago
- H/o Exercise induced asthma in childhood. Patient grew out of it. No recent symptoms.
Critical Care time [38] mins -- The patient is admitted for acute critical illness for the treatment of vital organ failure and/or prevention of further life-threatening conditions. Total care includes time spent in review of history, physical exam,
medications, hemodynamic/ventilator parameters, laboratory data, imaging and discussion with house staff, pharmacy, respiratory therapy, cement based materials pump tender, and nursing
Data:
ETT 10/2024: 1. Normal left ventricular size, wall thickness and systolic function. Estimated LVEF 55-60%.
2. Enlarged right ventricular size. Systolic function is within normal limits.
3. Right atrial size is moderately dilated.
4. Mild/moderate tricuspid regurgitation.
5. Large secundum atrial septal defect is seen.
6. Compared to ANTHONY 09/18/24: left atrial appendage thrombus is still present, but smaller
LHC 07/2024: 1. Left dominant circulation with no coronary artery disease. 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
2. Mildly elevated filling pressures (LVEDP = 15 mmHg, PCWP = 15 mmHg at 79.1 kg).
3. Large onwl-df-gqiyl shunt at the atrial level, consistent with previously diagnosed atrial septal defect. QP: QS = 2.29.
Chest CT 10/2024: 1. No acute pulmonary process.
2. Moderate cardiomegaly. No calcific atherosclerotic changes of aorta or coronary arteries identified.
Subjective Dataa
Subjective Data
Date of Service:
Date of Service: November 26, 2024
Subjective:
Comfortably sitting in chair, no new complaints.
Review of Systems
Genitourinary: Other (No new complaints. )
Objective Data
Data Reviewed
Vital Signs / I&O / Oxygen:
Vital Signs
Temp Pulse Resp BP Pulse Ox
99.9 F 70 18 119/71 97
11/26/24 08:00 11/26/24 08:00 11/26/24 08:00 11/26/24 08:00 11/26/24 08:55
Intake and Output
11/25/24 11/26/24 11/27/24
06:59 06:59 06:59
Intake Total 1546.5 / 1546.5 3599.2 / 3599.2 23.5 / 23.5
Output Total 1180 / 1180 970 / 970 50 / 50
Balance 366.5 / 366.5 2629.2 / 2629.2 -26.5 / -26.5
SaO2 [CPAP] 100
SaO2 [SIMV] 100
SaO2 97
Nasal Cannula flow liters per 2
minute
Physical Exam
General: Comfortable
HEENT: Normocephalic
Cardiovascular: S1-S2
Respiratory: Clear
GI: Soft and Non Distended
Neurology: Awake and Alert
Skin: Warm
Labs/Micro/Reports
Lab Data
11/26/24 04:41
11/26/24 04:41
Microbiology
11/24/24 07:48 Urine Urine Culture - Final
NO GROWTH
--- NOTE | 2024-11-26 10:13 | PTCARENOTE ---
Mediastinal Chest tubes X2 removed per CTPA order; A-paced on and VSS; family at bedside and assessment unchanged.
--- NOTE | 2024-11-26 12:14 | PTCARENOTE ---
A paced on monitor and VSS; pt ambulated hallway with RN; assessment unchanged and pt resting comfortable in chair.
[2024-11-26] MEDS: FERRLECIT 110 MG IV (13:26)
--- NOTE | 2024-11-26 16:45 | PTCARENOTE ---
Pt ambulating in room and hallway with RN; A-paced on monitor and VSS; assessment unchanged and family at bedside.
--- NOTE | 2024-11-26 20:00 | PTCARENOTE ---
assumed care of pt from previous RN. pt A&Ox4, resting in bed at time of assessment. 100% A-paced w/ temp epicardial A/V wires. settings AAI 78/10/0.4. POX 97% on RA. abd s/n, +BS. voiding clear, yellow colored urine in bathroom. all surgical sites
stable, CDI. R IJ cordis w/ SLIC. PIV intact. plan of care discussed w/ pt, pt in agreement. see worklist for complete nursing assessment, interventions, gtt titrations, VS, and I&Os.
[2024-11-26] MEDS: REMOVE LIDOCAINE PATCH 1 PATCH REMOVE (20:50)
[2024-11-27] VITALS (11 sets, daily range): BP systolic 99–127; BP diastolic 56–71; PULSE 53–58; O2SAT 97–100; BMI 31.1
--- NOTE | 2024-11-27 | PTCARENOTE ---
assessment remains unchanged. VSS.
[2024-11-27 04:45] LABS: Hematocrit 26.8 % (37.0-47.0); Hemoglobin 8.8 g/dL (12.0-16.0); Mean Corp Hgb Conc. 32.8 g/dL (33.0-37.0); Mean Corpuscular Volume 91.8 fL (81.0-99.0); Platelet Count 123 10^3/uL (130-400); Red Cell Dist. Width 13.1 % (11.5-14.5)
[2024-11-27 05:03] LABS: Blood Urea Nitrogen 9 mg/dl (7-17); Calcium 7.5 mg/dl (8.4-10.2); Carbon Dioxide 28 mmol/L (22-30); Chloride 103 mmol/L (98-107); Estimated Creatinine Clearance 124 ml/min; Glucose 107 mg/dl (70-99); Magnesium 2.1 mg/dl (1.6-2.3); Potassium 3.9 mmol/L (3.5-5.1); Sodium 133 mmol/L (135-145); eGFR > 60.00
[2024-11-27] MEDS: TYLENOL 975 MG PO ×3 (05:03→20:41)
--- NOTE | 2024-11-27 05:26 | W.PN.CT ---
Today's Communication / Plan
-
-pod #3
-remains AAI-paced @ 70, AM EKG with pacer paused shows slow afib
-now off slow dobutamine wean, last SvO2 69.6%
-still holding amio/BB
-2M CTs DCd
-UOP 800/2950 in 12/24 hrs, SCr 0.6->0.5 this AM
-TTE planned for today
-continue ASA, gabapentin, IV iron, mag ox, PPI, lidocaine patch
-encourage Is, OOB
Assessment / Plan
-
Assessment:
- Secundum ASD, with large shunt fraction, new onset atrial fibrillation atrial flutter with left atrial appendage clot- s/p Secundum ASD repair with bovine pericardial patch, measured approximately 3 x 2.5 cm; Biatrial cryo maze, surgical; Left
atrial appendage exclusion after exploration [35 mm device]; Simple tricuspid valve repair [32 mm band annuloplasty] by Dr. Cohn on 11/24/24, pod 3
-Atrial flutter- on Dabigatran preop
-Large secundum ASD with L -> R shunt
-Mild MR
-Mild-moderate TR
-LVEF 55-60%
-HTN
-Class 1 obesity (BMI 30.3)
-Scoliosis
-Former tobacco use
-S/P L heart Cath, no CAD, 08/09/24
-Acute postop blood loss anemia - stable
-Acute postop atelectasis
-Acute postop bradycardia/junctional rhythm - av-paced postop
Subjective
-
Date of Service: November 27, 2024
Objective Data
-
Lab Results
11/27/24 04:15
11/27/24 04:15
PT 16.1 Sec (11.4-14.6) H 11/24/24 12:02
INR 1.26 11/24/24 12:02
APTT 23.7 Sec (23.4-35.0) 11/24/24 12:02
Vital Signs
Vital Signs
Temp Pulse Resp BP Pulse Ox
98.3 F 78 16 110/71 97
11/27/24 04:00 11/27/24 05:00 11/27/24 04:00 11/27/24 04:00 11/27/24 04:00
CT Intake/Output/Weight
11/26/24 11/26/24 11/27/24
06:59 18:59 06:59
Intake Total 769.7 / 3599.2 203.1 / 410.3 207.2 / 410.3
Output Total 435 / 970 2200 / 3000 800 / 3000
Balance 334.7 / 2629.2 -1996.9 / -2589.7 -592.8 / -2589.7
SaO2: 97
Physical Exam
-
General: Awake and Oriented
Cardiovascular: Regular rate & rhythm, No Murmurs and No Rub
Respiratory: Clear, Equal and Decreased Breath Sounds
Sternum: Stable
Incision: Clean, Dry and Intact
Extremities: Edema +1 and No Erythema
Data Reviewed
-
Lab Results: Results Reviewed
Medications: Active Meds Reviewed
Chest X-Ray: Report Reviewed
ECG: Report Reviewed and Image Reviewed
[2024-11-27] MEDS: NEURONTIN 100 MG PO ×3 (08:17→20:41)
[2024-11-27] MEDS: LIDOCAINE 4% PATCH 1 PATCH TOPICAL (08:17)
[2024-11-27] MEDS: SENOKOT 8.6 MG PO ×2 (08:17→20:41)
[2024-11-27] MEDS: FLEXERIL 5 MG PO (08:17)
[2024-11-27] MEDS: LOW STRENGTH ASPIRIN 81 MG PO (08:17)
[2024-11-27] MEDS: MAGNESIUM OXIDE 400 MG PO ×2 (08:17→20:41)
[2024-11-27] MEDS: PROTONIX 40 MG PO (08:17)
[2024-11-27] MEDS: BACTROBAN 2% OINTMENT 1 APPLIC NASAL ×2 (08:20→20:41)
[2024-11-27] MEDS: KCL 40 MEQ PO (08:38)
--- NOTE | 2024-11-27 08:50 | W.PN.CD ---
Today's Communication / Plan
-
Monitor for improvement in sinus node function
Impression / Plan
-
Background: 44 y/o female with secundum ASD unsuitable for percutaneous closure, atypical atrial flutter + left atrial appendage thrombus, HTN and a history of tobacco abuse admitted for heparin bridging prior to surgical ASD closure and LAAE.
S/p Surgical repair of secundum ASD/biatrial MAZE, LA clip/ TV repair on 11/24/2024
Sinus node dysfunction, stable junctional escape under A pacing (11/27/2024)
Post-op anemia
- Monitor
Mild thrombocytopenia
PAF, typical flutter, s/p ablation at time of surgery on 11/24/2024
Typical atrial flutter, PAF/Left atrial appendage thrombus:
-[id number] score = 4 for (female, hypertension, and thrombus x2).
-For Dabigatran once bleeding risk is low.
HTN
Smoking, should remain smoke free moving forward.
Subjective/Interval History:
Feels ok.
DATA:
Introp ANTHONY 11/24/2024:
CONCLUSIONS
Large niht-ia-iyfic atrial septal defect with laminar flow.
Underfilled left ventricle with severe diastolic dysfunction due to rapid
atrial flutter. Ejection fraction estimated at 30%.
Severely dilated right atrium and right ventricle.
Severe tricuspid regurgitation with dilated annulus.
Mild mitral regurgitation with undersized posterior leaflet with resulting
posterior coaptation area.
Grossly normal aortic valve in structure and function.
Echodensity in left atrial appendage suspicious for thrombus.
Mild atheromatous disease of the descending thoracic aorta.
POST OPERATIVE FINDINGS
S/P Tricuspid valve repair with size 32 band; secundum ASD closure with patch;
MAZE; left atrial appendage exclusion
The tricuspid valve band is well-seated with no paravalvular leak. The mean
gradient is 1 mmHg. The left atrial appendage is no longer visible with color
flow Doppler confirming the absence of flow. The atrial septal defect is no
longer present with patch in place. The left ventricular function is markedly
improved with AV paced rhythm. The ejection fraction if 60%. The right atrium
and ventricle appear to be decompressed, with the atrial diameter measuring 3.4
cm. The mitral regurgitation is mild to moderate. Dobutamine 3 mcg/kg/min is
the pharmacological support. Otherwise unchanged exam.
CT Chest, 11/21/3034:
IMPRESSION:
1. No acute pulmonary process.
2. Moderate cardiomegaly. No calcific atherosclerotic changes of aorta or coronary arteries identified.
Carotid Duplex, 11/21/2024:
IMPRESSION: No significant carotid bulb plaque demonstrated on either side, and no evidence of hemodynamically significant carotid stenosis as per modified Society of Radiologists in Ultrasound consensus criteria (IAC carotid criteria white paper,
2020).
ANTHONY 10/30/24:
Normal left ventricular size, wall thickness and systolic function. Estimated LVEF 55-60%.
Enlarged right ventricular size. Systolic function is within normal limits.
Right atrial size is moderately dilated.
Mild/moderate tricuspid regurgitation.
Large secundum atrial septal defect is seen.
Compared to ANTHONY 09/18/24: left atrial appendage thrombus is still present, but smaller (1.3 cm x 0.8 cm, compared to 0.6 cm x 0.3cm).
Cardiac Catheterization, 08/09/2024:
CONCLUSIONS:
1. Left dominant circulation with no coronary artery disease. 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
2. Mildly elevated filling pressures (LVEDP = 15 mmHg, PCWP = 15 mmHg at 79.1 kg).
3. Large jpwc-fu-cizmb shunt at the atrial level, consistent with previously diagnosed atrial septal defect. QP: QS = 2.29.
Physical Exam
Vital Signs/Labs
Vital Signs
Temp Pulse Resp BP Pulse Ox
98.5 F 78 16 123/64 98
11/27/24 07:56 11/27/24 07:56 11/27/24 07:56 11/27/24 07:50 11/27/24 07:56
11/26/24 11/27/24 11/28/24
06:59 06:59 06:59
Actual Weight 82.5 kg 82.1 kg
11/27/24 04:15
11/27/24 04:15
PT 16.1 Sec (11.4-14.6) H 11/24/24 12:02
INR 1.26 11/24/24 12:02
APTT 23.7 Sec (23.4-35.0) 11/24/24 12:02
Magnesium 2.1 mg/dl (1.6-2.3) 11/27/24 04:15
Physical Exam
Constitutional: No acute distress
EENT: Anicteric
Cardiovascular: Rhythm & rate is regular and Pedal edema is absent
Respiratory: Respiratory effort normal and Lungs clear to auscul.
GI: Soft and Distention absent
Neuro/Psych: AO x 3
Data Reviewed
-
Date of Service: November 27, 2024
--- NOTE | 2024-11-27 09:34 | PTCARENOTE ---
Patient received from retread supervisor resting oob in chair, AAO X 3. A-paced via cm, SaO2 @ 97% on RA. RIJ Cordis/Slic w/kvo infusing. Epicardial A+V wires to pulse generator, actively A-pacing. Dr. Cohn and CT team to bedside, pacer backed up and
patient left with intrinsic rhythm. BP stable. All procedural sites stable. Patient updated to plan of care for the day, in agreement. See work list for full assessment and interventions performed.
--- NOTE | 2024-11-27 10:55 | W.PN.INTV ---
Today's Communication / Plan
Recommendations
Continue postoperative care
Increase activity as tolerated
Eventual to restart anticoagulation
Follow hemoglobin
Continue with analgesia
Sign off
Assessment
-
44-year-old female with known history of ASD with large shunt fraction (L > R), atrial fibrillation with left atrial appendage clot, s/p ASD repair with bovine pericardial patch, left atrial appendage exclusion, simple tricuspid valve repair, maze
procedure, POD # 3
-
Hemodynamically improved
Dobutamine has been discontinued
Normal renal function with adequate urinary output.
-
Anemia noted: Follow hemoglobin.
Transfuse as necessary
-
Patient extubated, currently on room air, saturating 98%. Work of breathing normal. No respiratory distress noted.
Chest x-ray : 11/27/2024
No evidence for pneumothorax
Decreased lung volumes likely subsegmental atelectasis
No evidence of significant effusion or collection
Incentive spirometry
Increase activity as able
History of exercise-induced asthma in childhood, patient eventually grew out of it.
Albuterol HFA as needed
Does not use inhalers on a regular basis.
Not bronchospastic on exam.
Chest tube has been discontinued.
Daily chest x-ray per protocol
Advance diet as tolerated following extubation
GI prophylaxis: Protonix
DVT prophylaxis including SCDs-eventual anticoagulation.
No additional critical care needs at this point.
I will sign off.
Other medical diagnoses:
- New onset atrial flutter/fibrillation. Status post maze procedure now
- Presumed left atrial appendage clot. S/p left atrial appendage exclusion
- Mild mitral valve insufficiency
- Hypertension
- Prior history of smoking. Patient quit about 3 months ago
- H/o Exercise induced asthma in childhood. Patient grew out of it. No recent symptoms.
Data:
ETT 10/2024: 1. Normal left ventricular size, wall thickness and systolic function. Estimated LVEF 55-60%.
2. Enlarged right ventricular size. Systolic function is within normal limits.
3. Right atrial size is moderately dilated.
4. Mild/moderate tricuspid regurgitation.
5. Large secundum atrial septal defect is seen.
6. Compared to ANTHONY 09/18/24: left atrial appendage thrombus is still present, but smaller
C 07/2024: 1. Left dominant circulation with no coronary artery disease. 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
2. Mildly elevated filling pressures (LVEDP = 15 mmHg, PCWP = 15 mmHg at 79.1 kg).
3. Large vlin-zz-pmpvj shunt at the atrial level, consistent with previously diagnosed atrial septal defect. QP: QS = 2.29.
Chest CT 10/2024: 1. No acute pulmonary process.
2. Moderate cardiomegaly. No calcific atherosclerotic changes of aorta or coronary arteries identified.
Subjective Dataa
Subjective Data
Date of Service:
Date of Service: November 27, 2024
Chief Complaint: Allocation Analyst Follow Up (s/p ASD repair with bovine pericardial patch, left atrial appendage exclusion, simple tricuspid valve repair, maze procedure, POD # 2)
Subjective:
No overnight events
Patient denies shortness of breath
Reports that pain is controlled
Review of Systems
General: Fever (n)
Cardiopulmonary: Dyspnea (none at rest)
GI: Abdominal Pain (n) and Nausea (n)
Neuro: Headache (n)
Objective Data
Data Reviewed
Vital Signs / I&O / Oxygen:
Vital Signs
Temp Pulse Resp BP Pulse Ox
98.5 F 52 17 115/63 97
11/27/24 08:30 11/27/24 09:00 11/27/24 08:30 11/27/24 08:54 11/27/24 09:31
Intake and Output
11/26/24 11/27/24 11/28/24
06:59 06:59 06:59
Intake Total 3599.2 / 3599.2 410.3 / 410.3 560 / 560
Output Total 970 / 970 3000 / 3000 500 / 500
Balance 2629.2 / 2629.2 -2589.7 / -2589.7 60 / 60
SaO2 [CPAP] 100
SaO2 [SIMV] 100
SaO2 97
Nasal Cannula flow liters per 2
minute
Physical Exam
General: Comfortable
HEENT: Normocephalic
Cardiovascular: S1-S2
Respiratory: Clear
GI: Soft and Non Distended
Neurology: Awake and Alert
Skin: Warm
Labs/Micro/Reports
Lab Data
11/27/24 04:15
11/27/24 04:15
Microbiology
11/24/24 07:48 Urine Urine Culture - Final
NO GROWTH
[2024-11-27] MEDS: NSS IV (11:20)
--- NOTE | 2024-11-27 12:04 | PTCARENOTE ---
VS obtained, assessment stable. Patient rhythm remains SB. Patient resting comfortably, family at bedside.
[2024-11-27] MEDS: FERRLECIT 110 MG IV (13:24)
--- NOTE | 2024-11-27 15:52 | CM ---
Reviewed chart. Met with Ms. Ramsey to review discharge plans. She states she is feeling well. We reviewed a home visit by the Transitional Care Nurse. She is agreeable to a home visit. Prior to admission she resides with her mother in a one story
with two steps to enter. Prior to admission she was independent with ambulation and adls. She does not have any DME in the home. She states she has a prescription plan and uses [facility]. Her mother will be home to assist in her care if needed.
Medical work-up in progress. The discharge plan is to return home with her mother and a home visit by the Transitional Care Nurse when medically stable.
--- NOTE | 2024-11-27 16:06 | PTCARENOTE ---
VS obtained, assessment stable. Patient resting comfortably, ambulating ad montserrat in room and unit. Family at bedside for visit.
--- NOTE | 2024-11-27 20:00 | PTCARENOTE ---
assumed care of pt from previous RN. pt A&Ox4, resting in bed at time of assessment. Sinus lit, w/ occasional v-pacing required w/ temp epicardial A/V wires. back up settings VVI 40/5/. POX 93% on RA. abd s/n, +BS. pt having BMs. pt c/o poor
appetite. pt voiding in toilet. all surgical sites stable, CDI. PIV x2 intact. see worklist for complete nursing assessment, interventions, VS, and I&Os.
[2024-11-27] MEDS: ELIQUIS 5 MG PO (20:41)
[2024-11-27] MEDS: REMOVE LIDOCAINE PATCH 1 PATCH REMOVE (20:42)
[2024-11-28] VITALS (10 sets, daily range): BP systolic 115–154; BP diastolic 61–75; PULSE 63; O2SAT 97–98; BMI 31.2
--- NOTE | 2024-11-28 00:21 | PTCARENOTE ---
assessment remains unchanged. VSS. SB w/ occasional v-paced beats.
--- NOTE | 2024-11-28 03:18 | W.PN.CT ---
Today's Communication / Plan
-
Plan:
-No major issues overnight. Hemodynamically and neurologically intact
-Pt with sinus bradycardia 40's, periods of v-pacing in 40's, and sinus in 60's overnight
-Temporary pacer @ backup VVI of 40 bpm
-EP following for possible PPM
-Currently holding Amiodarone and BB
-Repeat echo yesterday 11/27 showed both ASD and TV repair to be intact. No shunt or TR, normal LV function, RV dilated with decreased function
-On Eliquis as of 11/27/24 for hx of afib/flutter
-F/U 2-view cxr
-Hold senokot given diarrhea
-Encourage use of IS
-OOB into chair/Ambulate
Assessment / Plan
-
Assessment:
- Secundum ASD, with large shunt fraction, new onset atrial fibrillation atrial flutter with left atrial appendage clot- s/p Secundum ASD repair with bovine pericardial patch, measured approximately 3 x 2.5 cm; Biatrial cryo maze, surgical; Left
atrial appendage exclusion after exploration [35 mm device]; Simple tricuspid valve repair [32 mm band annuloplasty] by Dr. Cohn on 11/24/24, pod#4
-Atrial flutter- on Dabigatran preop
-Large secundum ASD with L -> R shunt
-Mild MR
-Mild-moderate TR
-LVEF 55-60%
-HTN
-Class 1 obesity (BMI 30.3)
-Scoliosis
-Former tobacco use
-S/P L heart Cath, no CAD, 08/09/24
-Acute postop blood loss anemia - stable
-Acute postop atelectasis
-Acute postop bradycardia/junctional rhythm - av-paced postop
Discussed patient care with: Cardiology, Nursing, Respiratory Therapy, Pharmacy and Care Team
Subjective
-
Date of Service: November 28, 2024
Pt c/o mild SOB and diarrhea - will hold senokot, otherwise feels well
Objective Data
-
PT 16.1 Sec (11.4-14.6) H 11/24/24 12:02
INR 1.26 11/24/24 12:02
APTT 23.7 Sec (23.4-35.0) 11/24/24 12:02
Vital Signs
Vital Signs
Temp Pulse Resp BP Pulse Ox
98 F 70 12 131/63 93
11/28/24 00:21 11/28/24 01:00 11/28/24 00:21 11/28/24 00:20 11/28/24 00:21
CT Intake/Output/Weight
11/27/24 11/27/24 11/28/24
06:59 18:59 06:59
Intake Total 207.2 / 410.3 1120 / 1120
Output Total 800 / 3000 1275 / 1525 250 / 1525
Balance -592.8 / -2589.7 -155 / -405 -250 / -405
SaO2: 93 (RA)
Physical Exam
-
General: Awake, Oriented and AOx3
Cardiovascular: Regular rate & rhythm, No Murmurs, No Rub and No Gallop
Respiratory: Decreased Breath Sounds (at bases, otherwise clear)
Sternum: Stable
Incision: Clean, Dry, Intact and Dressing Intact
Extremities: Other (+trace edema)
Data Reviewed
-
Lab Results: Results Reviewed
Medications: Active Meds Reviewed
Chest X-Ray: Report Reviewed and Image Reviewed
ECG: Report Reviewed and Image Reviewed
[2024-11-28 04:05] LABS: Hematocrit 25.6 % (37.0-47.0); Hemoglobin 8.6 g/dL (12.0-16.0); Mean Corp Hgb Conc. 33.6 g/dL (33.0-37.0); Mean Corpuscular Volume 89.5 fL (81.0-99.0); Platelet Count 146 10^3/uL (130-400); Red Cell Dist. Width 13.0 % (11.5-14.5)
--- NOTE | 2024-11-28 04:12 | PTCARENOTE ---
no acute changes. VSS. AM labs collected and sent.
[2024-11-28 04:39] LABS: Blood Urea Nitrogen 7 mg/dl (7-17); Calcium 8.1 mg/dl (8.4-10.2); Carbon Dioxide 25 mmol/L (22-30); Chloride 102 mmol/L (98-107); Estimated Creatinine Clearance 124 ml/min; Glucose 108 mg/dl (70-99); Magnesium 2.2 mg/dl (1.6-2.3); Potassium 4.1 mmol/L (3.5-5.1); Sodium 132 mmol/L (135-145); eGFR > 60.00
[2024-11-28] MEDS: TYLENOL 975 MG PO ×3 (06:25→21:32)
[2024-11-28] MEDS: FLEXERIL 5 MG PO ×2 (06:38→19:32)
[2024-11-28] MEDS: LOW STRENGTH ASPIRIN 81 MG PO (07:56)
[2024-11-28] MEDS: NEURONTIN 100 MG PO ×3 (07:56→21:32)
[2024-11-28] MEDS: BACTROBAN 2% OINTMENT 1 APPLIC NASAL (07:56)
[2024-11-28] MEDS: MAGNESIUM OXIDE 400 MG PO ×2 (07:56→19:32)
[2024-11-28] MEDS: ELIQUIS 5 MG PO ×2 (07:56→19:31)
[2024-11-28] MEDS: PROTONIX 40 MG PO (07:56)
[2024-11-28] MEDS: LIDOCAINE 4% PATCH TOPICAL (07:57)
[2024-11-28] MEDS: NSS IV (07:57)
--- NOTE | 2024-11-28 08:39 | W.PN.CD ---
Today's Communication / Plan
-
Diuresis
Monitor on tele with back up low rate pacing support
Avoid rate slowing meds
Impression / Plan
-
Background: 44 y/o female with secundum ASD unsuitable for percutaneous closure, atypical atrial flutter + left atrial appendage thrombus, HTN and a history of tobacco abuse admitted for heparin bridging prior to surgical ASD closure and LAAE.
S/p surgical repair of secundum ASD/biatrial MAZE, LA clip/ TV repair on 11/24/2024
- A bit more diuresis
RV dysfunction
- Hope that time will improve RV function but will need to watch for persistent dysfxn
- Predates surgery and was from long standing Left to Right shunting from large ASD
- Hope the RV dysfxn proves reversible
Sinus node dysfunction
- Much improved, only rare pacing now
- Anticipate further improvement
- Monitor
Post-op anemia
- Monitor
Thrombocytopenia, resolved
PAF, typical flutter, s/p ablation at time of surgery on 11/24/2024
- Known prior left atrial appendage thrombus:
- [id number] score = 4 for (female, hypertension, and thrombus x2).
- Now on oral anticoagulation
HTN
Smoking, should remain smoke free moving forward.
Subjective/Interval History:
feels better. CP well controlled.
Physical Exam
Vital Signs/Labs
Vital Signs
Temp Pulse Resp BP Pulse Ox
98.4 F 61 14 115/72 92
11/28/24 04:11 11/28/24 06:00 11/28/24 04:11 11/28/24 03:37 11/28/24 04:11
11/27/24 11/28/24 11/29/24
06:59 06:59 06:59
Actual Weight 82.1 kg 82.4 kg
11/28/24 03:53
11/28/24 03:53
PT 16.1 Sec (11.4-14.6) H 11/24/24 12:02
INR 1.26 11/24/24 12:02
APTT 23.7 Sec (23.4-35.0) 11/24/24 12:02
Magnesium 2.2 mg/dl (1.6-2.3) 11/28/24 03:53
Physical Exam
Constitutional: No acute distress
EENT: Anicteric
Cardiovascular: Rhythm & rate is regular, Pedal edema present (1+), S1S2 is normal and Rub absent
Respiratory: Respiratory effort normal
GI: Soft and Distention absent
Neuro/Psych: AO x 3 and Motor deficits absent
Data Reviewed
-
Date of Service: November 28, 2024
Echo: Report Reviewed by me (Echo 11/28/2024: similar to the post-op portion of intraop ANTHONY)
--- NOTE | 2024-11-28 10:02 | PTCARENOTE ---
Assumed care of patient from assistant shift supervisor RN. AAO x 3 , flat affect. C/o increased muscle soreness from increased activity. SR on monitor at present with intermittent V pacing at times. Room air 97-100%. Using IS independently. Lungs clear.
Abdomen soft with positive bowel sounds, Pt having some small BMs. Voiding independently , trace lower extremity edema. plan for day discussed.
[2024-11-28] MEDS: LASIX 20 MG IV (11:44)
[2024-11-28] MEDS: KCL 10 MEQ PO (11:44)
[2024-11-28] MEDS: MILK OF MAGNESIA 30 ML PO (11:48)
--- NOTE | 2024-11-28 12:07 | PTCARENOTE ---
Ambulating in hallway with Family. Chest tube incisions with large amount of serous drainage noted , area cleaned with CHG and new dressing applied. VSS Assessment otherwise unchanged from prior.
--- NOTE | 2024-11-28 14:47 | CM ---
Reviewed chart. Met with Ms. Ramsey to review discharge plans. She states she is feeling better. She has been ambulating in the hallway. We reviewed home visits by the Transitional Care Nurse. She is agreeable to a home visit. Prior to admission
she resides with her mother in a one story with two steps to enter. Prior to admission she was independent with ambulation and adls. She does not have any DME in the home. She states she has a prescription plan and uses [facility]. Her mother
will be home to assist in her care if needed. Medical work-up in progress. The discharge plan is to return home with her mother and a home visit by the Transitional Care Nurse when medically stable.
--- NOTE | 2024-11-28 14:59 | PTCARENOTE ---
Pt assisted into shower using shower chair. Tolerated without issue. Epicardial wire reconnected. Assisted with dressing. Ambulating in hallway after. VSS. Will continue to monitor.
[2024-11-28] MEDS: REMOVE LIDOCAINE PATCH REMOVE (21:32)
--- NOTE | 2024-11-29 00:11 | PTCARENOTE ---
patient resting, SCD in place and on, voiding on own yellow urine, ambulates to bathroom. Vital signs stable.NSR to [place] on monitor , VVI pace set to 40.
--- NOTE | 2024-11-29 00:13 | PTCARENOTE ---
assumed care of patient at 1900 patient alert and oriented, follows commands,moves all extermities, ambulates in room without assistance, voids clear yellow. Patient noted mild generalized discomfort and muscle ache and Flexeril given per order.
Temp pacer VVI 40/.5, Pulse +,afebrile, BP stable WNL, Trace edema in lower extremities, Lungs clear 98% room air, CT site dressing has small amount of drained noted, will monitor.
[2024-11-29 03:56] LABS: Blood Urea Nitrogen 7 mg/dl (7-17); Calcium 8.1 mg/dl (8.4-10.2); Carbon Dioxide 31 mmol/L (22-30); Chloride 101 mmol/L (98-107); Estimated Creatinine Clearance 124 ml/min; Glucose 112 mg/dl (70-99); Potassium 3.6 mmol/L (3.5-5.1); Sodium 134 mmol/L (135-145); eGFR > 60.00
[2024-11-29 04:03] LABS: Hematocrit 27.7 % (37.0-47.0); Hemoglobin 9.1 g/dL (12.0-16.0); Mean Corp Hgb Conc. 32.9 g/dL (33.0-37.0); Mean Corpuscular Volume 91.4 fL (81.0-99.0); Platelet Count 192 10^3/uL (130-400); Red Cell Dist. Width 13.2 % (11.5-14.5)
[2024-11-29 06:00] VITALS: BMI 30.9
[2024-11-29] MEDS: TYLENOL 975 MG PO (06:20)
[2024-11-29 06:24] VITALS: BP 129/72
--- NOTE | 2024-11-29 06:54 | W.PN.CT ---
Today's Communication / Plan
-
-pod #5
-No major issues overnight. Hemodynamically and neurologically intact, ambulated
-overnight, was in nsr 50s-60s with PVCs, brief ventricular bigeminy with rare paced beats after PVC. No significant lit or pauses overnight
-decreased temporary pacer rate to 30 bpm overnight (VVI @ 30 bmp)
-on 11/28, had sinus bradycardia 40's, periods of v-pacing in 40's, and sinus in 60's
-EP following
-Currently, holding Amiodarone and BB
-diuresed with 20 iv Lasix on 11/28- UO 2600
-gave 40 po KCL for K 3.6 this am
-Repeat echo 11/27 showed both ASD and TV repair to be intact. No shunt or TR, normal LV function, RV dilated with decreased function
-On Eliquis as of 11/27/24 for hx of afib/flutter
-2-view cxr on 11/28 with some minor nonspecific bibasilar groundglass opacity without significant change.
-Holding Senokot given diarrhea
-Encourage use of IS
-OOB into chair/Ambulate
-possible d/c soon
Assessment / Plan
-
Assessment:
- Secundum ASD, with large shunt fraction, new onset atrial fibrillation atrial flutter with left atrial appendage clot- s/p Secundum ASD repair with bovine pericardial patch, measured approximately 3 x 2.5 cm; Biatrial cryo maze, surgical; Left
atrial appendage exclusion after exploration [35 mm device]; Simple tricuspid valve repair [32 mm band annuloplasty] by Dr. Cohn on 11/24/24, pod#5
-Atrial flutter- on Dabigatran preop- started on Eliquis on 11/27/24
-Large secundum ASD with L -> R shunt
-Mild MR
-Mild-moderate TR
-LVEF 55-60%
-HTN
-Class 1 obesity (BMI 30.3)
-Scoliosis
-Former tobacco use
-S/P L heart Cath, no CAD, 08/09/24
-Acute postop blood loss anemia - stable
-Acute postop atelectasis
-Acute postop bradycardia/junctional rhythm - av-paced postop
Discussed patient care with: Nursing and Care Team
Subjective
-
Date of Service: November 28, 2024
Objective Data
-
Lab Results
11/28/24 03:53
11/28/24 03:53
PT 16.1 Sec (11.4-14.6) H 11/24/24 12:02
INR 1.26 11/24/24 12:02
APTT 23.7 Sec (23.4-35.0) 11/24/24 12:02
Vital Signs
Vital Signs
Temp Pulse Resp BP Pulse Ox
98.6 F 61 20 125/73 95
11/28/24 20:00 11/28/24 22:00 11/28/24 16:36 11/28/24 21:36 11/28/24 23:45
CT Intake/Output/Weight
11/28/24 11/28/24 11/29/24
06:59 18:59 06:59
Intake Total 1060 / 1260 200 / 1260
Output Total 475 / 1750 2600 / 3700 1100 / 3700
Balance -475 / -630 -1540 / -2440 -900 / -2440
SaO2: 95
Physical Exam
-
General: Awake and AOx3
Cardiovascular: Regular rate & rhythm, No Murmurs and No Rub
Respiratory: Decreased Breath Sounds
Sternum: Stable
Incision: Clean, Dry and Intact
Extremities: Edema +1
Abdomen: soft, nontender, nondistended, + bowel sounds, + BMs
Data Reviewed
-
Lab Results: Results Reviewed
Medications: Active Meds Reviewed
Chest X-Ray: Report Reviewed and Image Reviewed
ECG: Report Reviewed and Image Reviewed
[2024-11-29 07:44] VITALS: BP 121/63
[2024-11-29] MEDS: ELIQUIS 5 MG PO (07:45)
[2024-11-29] MEDS: NEURONTIN 100 MG PO (07:45)
[2024-11-29] MEDS: PROTONIX 40 MG PO (07:45)
[2024-11-29] MEDS: LOW STRENGTH ASPIRIN 81 MG PO (07:45)
[2024-11-29] MEDS: MAGNESIUM OXIDE 400 MG PO (07:46)
[2024-11-29] MEDS: LIDOCAINE 4% PATCH TOPICAL (07:46)
[2024-11-29] MEDS: KCL 40 MEQ PO (07:46)
--- NOTE | 2024-11-29 08:00 | PTCARENOTE ---
report received from previous RN at change of shift. Pt resting comfortably OOB in chair. AAOX3. ambulating in room independently. SR on telemetry heart rate in 60s. pulses palpable. +1 edema in lower extremities. 100% on room air. lung sounds
clear. hyperactive bowel sounds, pt reports episode of diarrhea. voiding without difficulty. Chest tube sites with moderate amount of drainage- dressing changed. surgical sites CDI. pt updated on plan of care. see worklist for full nursing
assessment and interventions.
[2024-11-29 09:25] VITALS: BP 123/64
[2024-11-29] MEDS: LASIX 20 MG IV (09:33)
[2024-11-29 09:34] VITALS: BP 143/68
[2024-11-29 09:37] VITALS: BP 123/64; BP 143/69; PULSE 69; O2SAT 99
--- NOTE | 2024-11-29 10:27 | W.PN.CD ---
Today's Communication / Plan
-
Diuresis per CT surgery
Avoid rate slowing meds for a week or two if possible, later if needed OK to add back
OK with discharge
Impression / Plan
-
Background: 44 y/o female with secundum ASD unsuitable for percutaneous closure, atypical atrial flutter + left atrial appendage thrombus, HTN and a history of tobacco abuse admitted for heparin bridging prior to surgical ASD closure and LAAE.
S/p surgical repair of secundum ASD/biatrial MAZE, LA clip/ TV repair on 11/24/2024
RV dysfunction
- Hope that time will improve RV function but will need to watch for persistent dysfxn
- Predates surgery and was from long standing Left to Right shunting from large ASD
- Hope the RV dysfxn proves reversible
Sinus node dysfunction => resolved
Post-op anemia => stable to improving
Thrombocytopenia, resolved
PAF, typical flutter, s/p ablation at time of surgery on 11/24/2024
- Known prior left atrial appendage thrombus:
- [id number] score = 4 for (female, hypertension, and thrombus x2).
- OK to add back rate slowing meds in 1-2 weeks but sooner if needed to control recurrent arrhythmia (none see so far)
- Now on oral anticoagulation
HTN
Smoking, should remain smoke free moving forward.
Subjective/Interval History:
feels better. CP well controlled.
Physical Exam
Vital Signs/Labs
Vital Signs
Temp Pulse Resp BP Pulse Ox
98.0 F 71 18 143/68 98
11/29/24 07:50 11/29/24 10:00 11/29/24 08:00 11/29/24 09:34 11/29/24 09:25
11/28/24 11/29/24 11/30/24
06:59 06:59 06:59
Actual Weight 82.4 kg 81.6 kg
11/29/24 03:04
11/29/24 03:04
PT 16.1 Sec (11.4-14.6) H 11/24/24 12:02
INR 1.26 11/24/24 12:02
APTT 23.7 Sec (23.4-35.0) 11/24/24 12:02
Magnesium 2.2 mg/dl (1.6-2.3) 11/28/24 03:53
Physical Exam
Constitutional: No acute distress
EENT: Anicteric
Cardiovascular: Rhythm & rate is regular and Pedal edema present (trace, improved from yesterday)
Respiratory: Respiratory effort normal and Lungs clear to auscul. (but decrease left base)
GI: Soft
Neuro/Psych: AO x 3 and Motor deficits absent
Data Reviewed
-
Date of Service: November 29, 2024
--- NOTE | 2024-11-29 11:29 | CM ---
Reviewed chat. Met with Ms. Ramsey and her parents to review discharge plans. She states she is feeling better and maybe able to go home soon. We reviewed a home visit by the Transitional Care Nurse. She is agreeable to a home visit. . Prior to
admission she resides with her mother in a one story with two steps to enter. Prior to admission she was independent with ambulation and adls. She does not have any DME in the home. She states she has a prescription plan and uses [facility]. Her
mother will be home to assist in her care if needed. Medical work-up in progress. The discharge plan is to return home with her mother and a home visit by the Transitional Care Nurse when medically stable.
--- NOTE | 2024-11-29 12:00 | PTCARENOTE ---
vitals stable. pt resting comfortably. chest tube dressing changed. pt showered. awaiting discharge
[2024-11-29 12:09] VITALS: BP 133/82
--- NOTE | 2024-11-29 12:44 | W.DCSUMMARY ---
Discharge Summary
Discharge Data
Date of Admission: 11/21/24
Date of Discharge: 11/29/24
-
Pending Results: No
Hospital Course
Primary care physician: None
Outpatient position clerk: Tom Greenfield
Procedures:
1. 11/24/24 sternotomy, ASD repair, biatrial cryo MAZE, LAAE 35mm clip, TVR 32mm band�
Primary Diagnosis:
1. secundum ASD/A-flutter/WINSOME thrombus�
Secondary Diagnoses:
1. Atrial Fibrillation
2. HTN
3. Scoliosis
HPI:
This is a 44-year-old female who was evaluated by Dr. Cohn in the CT office on 11/06/2024. She was diagnosed with atrial flutter in July and started on Dabigatran. Patient underwent attempted ANTHONY guided cardioversion on 09/18/24 and was found to have
a large secundum ASD with significant shunt and also thrombus in the left atrial appendage. Patient has been anticoagulated and repeat echocardiogram on 10/30/2024 reported preserved EF at 55% with no regional wall motion abnormality. Left atrial
appendage thrombus was still present but smaller. The patient was admitted 11/21/24 for Pradaxa to IV heparin conversion in preparation for left atrial appendage thrombectomy, secundum ASD closure, maze, and left atrial appendage clip on 11/24/[address] Jonny Cohn. Admission ECG showed atrial flutter at 72 bpm. Patient had prior cath 08/09/2024 which showed normal coronaries.
Hospital course:
The patient underwent ASD repair, biatrial cryo MAZE, LAAE 35mm clip, and TVR (32mm band) via sternotomy on 11/24. She received no blood products intra-op. She was transferred to the CVICU following her surgery on dobutamine drip and Precedex. She
had A and V wires and was being paced at 60 bpm. She did well overnight. She was still requiring pacing on postop day 1 and dobutamine was slowly being weaned. By postop day 2, dobutamine was completely weaned to off. She remained paced at 70
bpm. By postop day 3, the patient's intrinsic rhythm had returned, sinus bradycardia in the 50s. Her pacing wires were placed to backup. Eliquis was started at 5mg BID. EP was consulted to evaluate the patient for a permanent pacemaker. She was
ambulating in the hallways and felt well. On postop day 4, she had occasional paced beats overnight due to heart rate in the 30s. Per EP there was no need for implantation of a permanent pacer. On postop day 5, the patient looked well. She was
afebrile, heart rate 70 and sinus, blood pressure 133/82, pulse ox 99% on room air. Her pacing wires were clipped at the skin and she was discharged to home.
Discharge Plan
-
Patient Disposition: Home (Routine Discharge)
Discharge Diagnosis/Procedures: secundum ASD/A-flutter/WINSOME thrombus
Condition: Good
Diet: Regular
Activity: No strenuous activity
Driving Restrictions: No driving for one month or until approved by your
Bathing Restrictions: OK to Shower
Wound Care: -Shower daily. Use soap & water.
-No lotions, creams or powders on incision area.
Specialty Instructions: Weigh Daily- Call MD for wt gain/loss 3 lbs overnight/5 lbs in 1 week
Activity Restrictions/Additional Instructions:
ACTIVITY:
-No strenuous activity: no heavy lifting, pushing, pulling anything over 15 pounds for one month
-continue to use stairs as tolerated
DRIVING RESTRICTIONS:
-No driving for one month or until approved by your surgeon
WOUND CARE:
-Shower daily. Use soap & water.
-No lotions, creams or powders on incision area.
DIET:
-continue a low fat/low cholesterol diet.
-IF you are diabetic, continue carb controlled diet.
CARDIAC REHAB:
-Please make appointment to start in 5-6 weeks with your local hospital program. (See Cardiac Rehabilitation Discharge Booklet).
SPECIALTY INSTRUCTIONS:
-Weigh yourself daily. Call your physician for any weight gain/loss of 3 lbs overnight or 5 lbs in one week.
-REPORT any clicking noise or uneven appearance of your sternum to your surgeon immediately.
-If you smoke, you are instructed to quit. The [place] smoking hotline phone number is [phone]
Referrals:
CT Transitional Care Nurse [Outside] - in one to two days
Referral Note: The Cardiothoracic Transitional Care Nurse will call you to set up a visit in 1-2 days.
[facility] [Outside] - 01/09/25 1:00 pm
Referral Note: Cardiac Rehab Orientation appointment is on 01/09/25 at 1 pm_�
The Cardiac Rehab gym is located on the first floor of the [facility].
Anna Daniels CRNP [Specified Professional Personl, Cardiology] - 01/08/25 10:40 am
Jonny Cohn MD [Active, Cardiac Surgery] - 12/25/24 2:30 pm
UNKNOWN - PT DOES,NOT KNOW [Family Provider]
Prescriptions:
New
Eliquis 5 mg Tablet
5 mg PO BID Qty: 60 2RF
cyclobenzaprine 10 mg Tablet
5 mg PO Q8HPRN PRN (Reason: muscle spasm) Qty: 20 0RF
aspirin 81 mg Tablet,Chewable
81 mg PO DAILY Qty: 0 0RF
Rx Instructions:
Over the counter
pantoprazole 40 mg Tablet,Delayed Release (Dr/Ec)
40 mg PO DAILY Qty: 30 0RF
furosemide [Lasix] 20 mg tablet
20 mg PO DAILY Qty: 5 0RF
Rx Instructions:
Take daily for 5 days with potassium and then stop
potassium chloride [Klor-Con 10] 10 mEq tablet extended release
10 meq PO DAILY Qty: 5 0RF
Rx Instructions:
Take daily for 5 days with Lasix and then stop
oxycodone 5 mg capsule
5 mg PO Q6HPRN PRN (Reason: Pain) Qty: 20 0RF
Rx Instructions:
Ongoing treatment. attending Dr. Cohn
Continued
acetaminophen 500 mg Tablet
500 mg PO QID PRN (Reason: pain)
Discontinued
diltiazem HCl [Matzim LA] 360 mg Tablet Extended Release 24 Hr
360 mg PO DAILY
dabigatran etexilate 150 mg Capsule
150 mg PO BID
Discharge Orders:
Discharge Patient (As Directed); Ordered 11/29/24
Ordered By: Dulce Maria Almanza
Care Plan Goals
Care Plan Goals:
Problem: Readiness for enhanced knowledge related to diagnosis and treatment plan
Goal: Understand your diagnosis and treatment plan needs, including medications if applicable.
Instructions: Know your diagnosis, underlying causes and treatment plan options, including medications if applicable. Consult with your health care team to learn about your diagnosis and treatment plan, including medications if applicable.
Discharge Date and Time
Discharge Date/Time: 11/29/24 13:47
Print Language: SINHALA
== END 2024-11-29 13:47 | disposition home or self-care (01) | DRG 220 ==
LOC: CVICU 12:06
PROVIDERS: Clinical Nurse Specialist Acute Care; Nurse Practitioner; Physician Assistant; Physician Assistant Medical; ADMITTING PHYSICIAN Thoracic Surgery (Cardiothoracic Vascular Surgery); CONSULT PHYSICIAN Internal Medicine
PROC: B24BZZ4 Ultrasonography of Heart with Aorta, Transesophageal (ICD-10-PCS; 2024-11-24)
PROC: 02UJ0JZ Supplement Tricuspid Valve with Synthetic Substitute, Open Approach (ICD-10-PCS; 2024-11-24)
PROC: 02580ZZ Destruction of Conduction Mechanism, Open Approach (ICD-10-PCS; 2024-11-24)
PROC: 02L70CK Occlusion of Left Atrial Appendage with Extraluminal Device, Open Approach (ICD-10-PCS; 2024-11-24)
PROC: 02U508Z Supplement Atrial Septum with Zooplastic Tissue, Open Approach (ICD-10-PCS; 2024-11-24)
PROC: 5A1221Z Performance of Cardiac Output, Continuous (ICD-10-PCS; 2024-11-24)
DX: Q21.11 Secundum atrial septal defect (principal); D62 Acute posthemorrhagic anemia; I48.3 Typical atrial flutter; J98.11 Atelectasis; I51.3 Intracardiac thrombosis, not elsewhere classified; E66.811 Obesity, class 1; I10 Essential (primary) hypertension; I48.0 Paroxysmal atrial fibrillation; D69.6 Thrombocytopenia, unspecified; I49.8 Other specified cardiac arrhythmias; M41.9 Scoliosis, unspecified; Z79.01 Long term (current) use of anticoagulants; Z87.891 Personal history of nicotine dependence; Z68.30 Body mass index [BMI] 30.0-30.9, adult
CPT/HCPCS: 33259; 71045; 71046; 71250; 80048; 80053; 81003; 81015; 81025; 82330; 82565; 82805; 82810; 82947; 82962; 83036; 83735; 84132; 84302; 84484; 84520; 85014; 85018; 85025; 85027; 85049; 85610; 85730; 86850; 86900; 86901; 86920; 87086; 93005; 93308; 93312; 93320; 93321; 93325; 93880; 94002; C1768; J2916

== ENCOUNTER 2025-01-19 06:53 | Outpatient (RCR) | payer OTHER, SELFPAY | END 2025-01-19 23:59 | disposition home or self-care (01) | LOC: CRHB 06:53 | PROVIDERS: ATTENDING PHYSICIAN Internal Medicine | DX: Z95.4 Presence of other heart-valve replacement (principal) | CPT/HCPCS: 93797; 93798 ==

== ENCOUNTER 2025-02-14 06:46 | Outpatient (RCR) | payer OTHER, SELFPAY | END 2025-02-14 23:59 | disposition home or self-care (01) | LOC: CRHB 06:46 | PROVIDERS: ATTENDING PHYSICIAN Internal Medicine | DX: Z95.4 Presence of other heart-valve replacement (principal) | CPT/HCPCS: 93797; 93798; G0422 ==

== ENCOUNTER → 2025-02-14 09:53 | Outpatient (REF) | payer OTHER, SELFPAY | LOC: RCS 09:53 | PROVIDERS: ATTENDING PHYSICIAN Internal Medicine | DX: I48.3 Typical atrial flutter (principal); I10 Essential (primary) hypertension; Z98.890 Other specified postprocedural states | CPT/HCPCS: 93306 ==